=== PATIENT | male | born 1970 | race Caucasian/White ===

== ENCOUNTER 2017-06-11 10:56 | Emergency (ER) | payer OTHER ==
[2017-06-11] MEDS ORDERED: NITROGLYCERIN 2% OINTMENT 1 GM PACKET TP ONE (11:13)
--- NOTE | 2017-06-11 11:15 | ER Document Report ---
ED Medical Screen (RME) - General Chief Complaint: Chest Pain Stated Complaint: CHEST PAIN Time Seen by Provider: 06/11/17 11:12 Mode of Arrival: Wheelchair Information source: Patient TRAVEL OUTSIDE OF THE [place] IN LAST 30 DAYS: No - HPI Patient complains to provider of: cp Onset: Yesterday - pt. with prior [place] (CABG and stents) with SSCP yesterday with raidation down L arm. Has continued into today. Did take ASA and ntg times 3 this am - Related Data Allergies/Adverse Reactions: morphine [Morphine] Allergy (Severe, Verified 03/27/16 08:13) phycosis Past Medical History - Past Medical History Cardiac Medical History: Reports: Hx Coronary Artery Disease, Hx Heart Attack - 2011, Hx Hypercholesterolemia, Hx Hypertension Pulmonary Medical History: Reports: Hx Pneumonia Denies: Hx Tuberculosis Neurological Medical History: Reports: Hx Cerebrovascular Accident, Hx Migraine , Hx Seizures Endocrine Medical History: Reports: Hx Diabetes Mellitus Type 1, Hx Diabetes Mellitus Type 2 GI Medical History: Reports: Hx Gastroesophageal Reflux Disease Psychiatric Medical History: Reports: Hx Depression Past Surgical History: Reports: Hx Appendectomy, Hx Cardiac Surgery - CABGx3, Hx Coronary Artery Bypass Graft - Triple Bypass June 2011, Hx Orthopedic Surgery - Right knee, right shoulder.. Denies: Hx Pacemaker - Immunizations Hx Diphtheria, Pertussis, Tetanus Vaccination: Yes Physical Exam - Vital signs Vitals: Temp Pulse Resp BP Pulse Ox 99.0 F 102 H 20 132/97 H 99 06/11/17 11:06 06/11/17 11:06 06/11/17 11:06 06/11/17 11:06 06/11/17 11:06 Course - Vital Signs Vital signs: Temp Pulse Resp BP Pulse Ox 99.0 F 102 H 20 132/97 H 99 06/11/17 11:06 06/11/17 11:06 06/11/17 11:06 06/11/17 11:06 06/11/17 11:06
[2017-06-11 12:01] LABS: ABSOLUTE BASOPHILS # (AUTO) 0.1 10^3/uL (0.0-0.2); ABSOLUTE EOSINOPHILS # (AUTO) 0.4 10^3/uL (0.0-0.6); ABSOLUTE LYMPHOCYTES (AUTO) 3.3 10^3/uL (0.5-4.7); ABSOLUTE MONOCYTES (AUTO) 0.6 10^3/uL (0.1-1.4); BASOPHILS % (AUTO) 0.7 % (0-2); EOSINOPHILS % (AUTO) 3.5 % (0-6); HEMATOCRIT 45.2 % (37.9-51.0); LYMPHOCYTES % (AUTO) 31.9 % (13-45); MEAN CORPUSCULAR HEMOGLOBIN 32.3 pg (27.0-33.4); MEAN CORPUSCULAR HGB CONC 35.4 g/dL (32.0-36.0); MEAN CORPUSCULAR VOLUME 91 fl (80-97); MONOCYTES % (AUTO) 5.9 % (3-13); PLATELET COUNT 227 10^3/uL (150-450); RED BLOOD COUNT 4.97 10^6/uL (4.35-5.55); TOTAL CELLS COUNTED % (AUTO) 100 %; WHITE BLOOD COUNT 10.3 10^3/uL (4.0-10.5)
[2017-06-11 12:19] LABS: ALANINE AMINOTRANSFERASE 32 U/L (21-72); ALBUMIN 4.6 g/dL (3.5-5.0); ALKALINE PHOSPHATASE 92 U/L (38-126); ANION GAP 14 (5-19); ASPARTATE AMINO TRANSFERASE 25 U/L (17-59); BILIRUBIN,DIRECT 0.1 mg/dL (0.0-0.4); BILIRUBIN,TOTAL 0.5 mg/dL (0.2-1.3); BLOOD UREA NITROGEN 20 mg/dL (7-20); CARBON DIOXIDE 23 mmol/L (22-30); CHLORIDE 105 mmol/L (98-107); CREATINE KINASE 106 U/L (55-170); GLUCOSE 252 mg/dL (75-110); POTASSIUM 4.3 mmol/L (3.6-5.0); SODIUM 141.6 mmol/L (137-145)
--- NOTE | 2017-06-11 12:24 | ER Document Report ---
ED Cardiac - General Chief Complaint: Chest Pain Stated Complaint: CHEST PAIN Time Seen by Provider: 06/11/17 11:12 Mode of Arrival: Wheelchair Information source: Patient Notes: 46-year-old male who presents today with past medical history including CABG in 2011 with a stent placed in 2015 followed by the primary care physician Dr. Stock who presents today with the onset around 2 AM of some "shooting" intermittent pain to the left anterior chest. He denies any aggravating or relieving factors. He states some radiation to his left jaw with some intermittent "heaviness and numbness" to his left arm. He denies any weakness to his arm. He denies any diaphoresis, nausea, vomiting, calf pain, leg swelling, coughing, or shortness of breath. He denies any recent trips or travel. Patient has taken nitroglycerin and a 325 aspirin this morning. TRAVEL OUTSIDE OF THE [place] IN LAST 30 DAYS: No - HPI Patient complains to provider of: Chest pain Was the onset of pain: Gradual Quality of pain: Other - See above Chest pain radiation location: Left jaw Severity now: Mild Severity at worst: Moderate Pain level currently: Denies Associated symptoms: Other - See above Exacerbated by: Denies Relieved by: Nothing Similar symptoms previously: Yes Recently seen / treated by doctor: No - Related Data Allergies/Adverse Reactions: morphine [Morphine] Allergy (Severe, Verified 03/27/16 08:13) phycosis Past Medical History - General Information source: Patient - Social History Smoking Status: Current Every Day Smoker Cigarette use (# per day): No Chew tobacco use (# tins/day): No Smoking Education Provided: No Frequency of alcohol use: None Drug Abuse: None Family History: CAD Patient has suicidal ideation: No Patient has homicidal ideation: No - Past Medical History Cardiac Medical History: Reports: Hx Coronary Artery Disease, Hx Heart Attack - 2011, Hx Hypercholesterolemia, Hx Hypertension Pulmonary Medical History: Reports: Hx Pneumonia Denies: Hx Tuberculosis Neurological Medical History: Reports: Hx Cerebrovascular Accident, Hx Migraine , Hx Seizures Endocrine Medical History: Reports: Hx Diabetes Mellitus Type 1, Hx Diabetes Mellitus Type 2 Renal/ Medical History: Denies: Hx Peritoneal Dialysis GI Medical History: Reports: Hx Gastroesophageal Reflux Disease Psychiatric Medical History: Reports: Hx Depression Past Surgical History: Reports: Hx Appendectomy, Hx Cardiac Surgery - CABGx3, stents, Hx Coronary Artery Bypass Graft - Triple Bypass June 2011, Hx Orthopedic Surgery - Right knee, right shoulder.. Denies: Hx Pacemaker - Immunizations Hx Diphtheria, Pertussis, Tetanus Vaccination: Yes Hx Pneumococcal Vaccination: 04/18/09 Review of Systems - Review of Systems Constitutional: denies: Fever EENT: denies: Eye discharge, Nose discharge Cardiovascular: Chest pain. denies: Palpitations, Heart racing Respiratory: denies: Short of breath Gastrointestinal: denies: Vomiting Genitourinary: denies: Dysuria Musculoskeletal: denies: Leg swelling Skin: Other - no hives. denies: Rash Neurological/Psychological: Other - no slurred speech -: Yes All other systems reviewed and negative Physical Exam - Vital signs Vitals: Temp Pulse Resp BP Pulse Ox 99.0 F 102 H 20 132/97 H 99 06/11/17 11:06 06/11/17 11:06 06/11/17 11:06 06/11/17 11:06 06/11/17 11:06 Notes: Reviewed vital signs and nursing note as charted by RN. CONSTITUTIONAL: Alert and oriented and responds appropriately to questions. Well -appearing; well-nourished HEAD: Normocephalic; atraumatic EYES: PERRL ENT: Moist mucous membranes; pharynx without lesions noted NECK: Supple without meningismus; non-tender CARD: Regular rate and rhythm; no murmurs, no clicks, no rubs, no gallops; symmetric distal pulses RESP: Normal chest excursion without splinting or tachypnea; breath sounds clear and equal bilaterally ABD/GI: Normal bowel sounds; non-distended; soft, non-tender BACK: The back appears normal and is non-tender to palpation EXT: Normal ROM in all joints; non-tender to palpation; no edema SKIN: No acute lesions noted NEURO: Moves all extremities equally; Motor and sensory function intact PSYCH: The patient's mood and manner are appropriate. Grooming and personal hygiene are appropriate. Course - Re-evaluation Re-evalutation: 06/11/17 12:23 Given the history and physical examination, maximum pain 6 out of 10, no radiation to the back, intermittent in nature, no focal neurological deficits on my examination, heart rate currently 97, oxygen saturation 99, I do believe PE and aortic dissection to be unlikely. I will obtain a cardiac panel, x-ray of the chest, and EKG. EKG shows a heart of 113, sinus tachycardia, normal axis, poor R-wave progression, no obvious ST elevation or depression. 06/11/17 13:09 Initial troponin as recorded. Given the elevated risk for this patient, I had a discussion with the patient and his mother that I believe the patient requires admission for further evaluation. Patient refuses. He states he would like to go home. I have tried to answer all questions to change his mind. I was unsuccessful. He will allow me to obtain another troponin, 3 hours from the initial. He then agrees to sign out AMA if this is normal. Patient is asking for pain medications if he is going to stay here. He refuses a nitroglycerin drip and states he is allergic to morphine. He states he will take Dilaudid. I will provide a 1 mg dose of Dilaudid with a repeat 3 hour troponin. 06/11/17 14:21 Patient eloped AGAINST MEDICAL ADVICE after he received the Dilaudid. We were not able to provide paperwork or follow-up to the patient. - Vital Signs Vital signs: Temp Pulse Resp BP Pulse Ox 99.0 F 102 H 14 127/77 H 97 06/11/17 11:06 06/11/17 11:06 06/11/17 13:17 06/11/17 13:17 06/11/17 13:17 - Laboratory Result Diagrams: 06/11/17 11:25 06/11/17 11:25 Laboratory results interpreted by me: 06/11/17 11:25 Glucose 252 H Discharge - Discharge Clinical Impression: Chest pain Qualifiers: Chest pain type: unspecified Qualified Code(s): R07.9 - Chest pain, unspecified Condition: Fair Disposition: AGAINST MEDICAL ADVICE
[2017-06-11] MEDS ORDERED: ACETAMINOPHEN 325 MG TABLET PO ONE (12:27)
[2017-06-11 12:31] LABS: CREATINE KINASE MB 0.29 ng/mL (<4.55)
[2017-06-11 12:33] LABS: TROPONIN I < 0.012 ng/mL
--- NOTE | 2017-06-11 13:04 | RADIOLOGY REPORT (SQ) ---
EXAM DESCRIPTION: CHEST PA/LAT COMPLETED DATE/TIME: 06/11/2017 12:36 pm REASON FOR STUDY: cp COMPARISON: 03/27/2016 EXAM PARAMETERS: NUMBER OF VIEWS: two views TECHNIQUE: Digital Frontal and Lateral radiographic views of the chest acquired. RADIATION DOSE: NA LIMITATIONS: none FINDINGS: LUNGS AND PLEURA: No opacities, masses or pneumothorax. No pleural effusion. MEDIASTINUM AND HILAR STRUCTURES: No masses or contour abnormalities. HEART AND VASCULAR STRUCTURES: Heart normal size. No evidence for failure. BONES: No acute findings. HARDWARE: Stable appearance of the sternotomy wires. OTHER: No other significant finding. IMPRESSION: NO SIGNIFICANT RADIOGRAPHIC FINDING IN THE CHEST. TECHNICAL DOCUMENTATION: JOB ID: [id number] [employer]- All Rights Reserved Reading location - IP/workstation name: [email or web address]
[2017-06-11] MEDS ORDERED: HYDROMORPHONE HCL INJ/PF 2 MG/ML AMPULE IV ONE (13:11)
[2017-06-11 14:02] VITALS: BP 127/77
--- NOTE | 2017-06-11 17:20 | EKG REPORT ---
SEVERITY:- OTHERWISE NORMAL ECG - SINUS TACHYCARDIA LOW VOLTAGE IN FRONTAL LEADS : Confirmed by: Efraín Armando MD 11-Jun-2017 17:19:20
== END 2017-06-11 14:02 | disposition left against medical advice (07) ==
LOC: ER 10:56
DX: R07.9 Chest pain, unspecified (principal); R20.0 Anesthesia of skin; R00.0 Tachycardia, unspecified; E11.9 Type 2 diabetes mellitus without complications; I10 Essential (primary) hypertension; I25.10 Atherosclerotic heart disease of native coronary artery without angina pectoris; I25.2 Old myocardial infarction; Z95.1 Presence of aortocoronary bypass graft; Z95.5 Presence of coronary angioplasty implant and graft; Z88.5 Allergy status to narcotic agent; Z87.01 Personal history of pneumonia (recurrent); Z53.20 Procedure and treatment not carried out because of patient's decision for unspecified reasons
CPT/HCPCS: 93005; 99285; 96374; 36415; 82553; 82550; 85025; 80053; 84484; 71046; 93010; J1170

== ENCOUNTER 2017-11-15 18:24 | Emergency (ER) | payer OTHER ==
[2017-11-15] MEDS ORDERED: ASPIRIN 81 MG TABLET, CHEWABLE PO ONE (19:06)
[2017-11-15] MEDS ORDERED: HYDROMORPHONE HCL INJ/PF 2 MG/ML AMPULE IV ONE ×3 (19:06→23:02)
[2017-11-15] MEDS ORDERED: ONDANSETRON HCL INJ/PF 4 MG/2 ML SDV IV ONE (19:06)
[2017-11-15] MEDS ORDERED: METOPROLOL TARTRATE PF/INJ 5 MG/5 ML SDV IV ONE (19:07)
[2017-11-15] MEDS ORDERED: NITROGLYCERIN 2% OINTMENT 1 GM PACKET TP ONE (19:07)
--- NOTE | 2017-11-15 19:09 | ER Document Report ---
ED Medical Screen (RME) - General Chief Complaint: Chest Pain Stated Complaint: CHEST PAIN Time Seen by Provider: 11/15/17 19:06 Mode of Arrival: Ambulatory Information source: Patient Notes: This is a 46-year-old man with a history of coronary artery disease (CABG 3, followed by stent) who presents to the emergency room with left-sided chest pain sharp in nature which is radiating down the left arm. He says this is consistent with previous anginal equivalent. Patient states that the pain started at 3 PM. He does report palpitations. Primary CARE physician: Arie Track Worker: OLGA TRAVEL OUTSIDE OF THE [place] IN LAST 30 DAYS: No - Related Data Allergies/Adverse Reactions: morphine [Morphine] Allergy (Severe, Verified 03/27/16 08:13) phycosis Past Medical History - Social History Chew tobacco use (# tins/day): No Frequency of alcohol use: Occasional Drug Abuse: None - Past Medical History Cardiac Medical History: Reports: Hx Coronary Artery Disease, Hx Heart Attack - 2011, Hx Hypercholesterolemia, Hx Hypertension Pulmonary Medical History: Reports: Hx Pneumonia Denies: Hx Tuberculosis Neurological Medical History: Reports: Hx Cerebrovascular Accident, Hx Migraine , Hx Seizures Endocrine Medical History: Reports: Hx Diabetes Mellitus Type 1, Hx Diabetes Mellitus Type 2 Renal/ Medical History: Denies: Hx Peritoneal Dialysis GI Medical History: Reports: Hx Gastroesophageal Reflux Disease Psychiatric Medical History: Reports: Hx Depression Past Surgical History: Reports: Hx Appendectomy, Hx Cardiac Catheterization - stents 2014, Hx Cardiac Surgery - CABGx3, stents, Hx Coronary Artery Bypass Graft - Triple Bypass June 2011, Hx Open Heart Surgery - CABG 2011, Hx Orthopedic Surgery - Right knee, right shoulder.. Denies: Hx Pacemaker - Immunizations Hx Diphtheria, Pertussis, Tetanus Vaccination: Yes Physical Exam - Vital signs Vitals: Temp Pulse Resp BP Pulse Ox 98.7 F 121 H 20 131/98 H 97 11/15/17 18:42 11/15/17 18:42 11/15/17 18:42 11/15/17 18:42 11/15/17 18:42 Course - Vital Signs Vital signs: Temp Pulse Resp BP Pulse Ox 98.7 F 121 H 20 131/98 H 97 11/15/17 18:42 11/15/17 18:42 11/15/17 18:42 11/15/17 18:42 11/15/17 18:42
--- NOTE | 2017-11-15 19:28 | ER Document Report ---
ED Cardiac - General Chief Complaint: Chest Pain Stated Complaint: CHEST PAIN Time Seen by Provider: 11/15/17 19:06 Mode of Arrival: Ambulatory Notes: Patient is a 46-year-old male comes emergency department for chief complaint of chest pain, pain is sharp, radiates along the left side of his chest toward his arm, started at 3 PM while he was watching TV, he took 3 sublingual nitroglycerin, he states pain is intermittently severe still, he took 2 additional sublingual nitroglycerin and when pain continued he came to the emergency department. He describes the pain as sharp, like being hit in the chest when a hammer and then gets tingling sensation in his left arm. Pain is very frequent. He denies vomiting, fever or chills, cough, dizziness, trauma. He has a complicated medical history including CABG 3, most recently had a stent in 2014 at [facility], he also has a history of hyperlipidemia, hypertension, type 2 diabetes, seizure, and he continues to smoke. He denies recreational drugs. He is on pain management for chronic pain secondary to "abnormally healed sternum which was fractured from coughing". His mother is at bedside. TRAVEL OUTSIDE OF THE [place] IN LAST 30 DAYS: No - Related Data Allergies/Adverse Reactions: morphine [Morphine] Allergy (Severe, Verified 03/27/16 08:13) phycosis Past Medical History - General Information source: Patient - Social History Smoking Status: Current Every Day Smoker Chew tobacco use (# tins/day): No Smoking Education Provided: Yes - <3 min Frequency of alcohol use: Occasional Drug Abuse: None Lives with: Family Family History: CAD Patient has suicidal ideation: No Patient has homicidal ideation: No - Past Medical History Cardiac Medical History: Reports: Hx Coronary Artery Disease, Hx Heart Attack - 2011, Hx Hypercholesterolemia, Hx Hypertension Pulmonary Medical History: Reports: Hx Pneumonia Denies: Hx Tuberculosis Neurological Medical History: Reports: Hx Cerebrovascular Accident, Hx Migraine , Hx Seizures Endocrine Medical History: Reports: Hx Diabetes Mellitus Type 2 Renal/ Medical History: Denies: Hx Peritoneal Dialysis GI Medical History: Reports: Hx Gastroesophageal Reflux Disease Psychiatric Medical History: Reports: Hx Depression Past Surgical History: Reports: Hx Appendectomy, Hx Cardiac Catheterization - stents 2014, Hx Cardiac Surgery - CABGx3, stents, Hx Coronary Artery Bypass Graft - Triple Bypass June 2011, Hx Open Heart Surgery - CABG 2011, Hx Orthopedic Surgery - Right knee, right shoulder.. Denies: Hx Pacemaker - Immunizations Hx Diphtheria, Pertussis, Tetanus Vaccination: Yes Hx Pneumococcal Vaccination: 04/18/09 Review of Systems - Review of Systems Constitutional: No symptoms reported EENT: No symptoms reported Cardiovascular: See HPI Respiratory: No symptoms reported Gastrointestinal: No symptoms reported Genitourinary: No symptoms reported Male Genitourinary: No symptoms reported Musculoskeletal: No symptoms reported Skin: No symptoms reported Hematologic/Lymphatic: No symptoms reported Neurological/Psychological: No symptoms reported Physical Exam - Vital signs Vitals: Temp Pulse Resp BP Pulse Ox 98.7 F 121 H 20 131/98 H 97 11/15/17 18:42 11/15/17 18:42 11/15/17 18:42 11/15/17 18:42 11/15/17 18:42 - Notes Notes: GENERAL: Alert, interacts well. On initial evaluation patient is calm and in no distress HEAD: Normocephalic, atraumatic. EYES: Pupils equal, round, and reactive to light. Extraocular movements intact. ENT: Oral mucosa moist, tongue midline. NECK: Full range of motion. Supple. Trachea midline. LUNGS: Clear to auscultation bilaterally, no wheezes, rales, or rhonchi. No respiratory distress. No tenderness to palpation of the chest wall. HEART: Tachycardia, normal rhythm, no murmur ABDOMEN: Soft, non-tender. Non-distended. Bowel sounds present in all 4 quadrants. EXTREMITIES: Moves all 4 extremities spontaneously. No edema, normal radial and dorsalis pedis pulses bilaterally. No cyanosis. BACK: no cervical, thoracic, lumbar midline tenderness. No saddle anesthesia, normal distal neurovascular exam. NEUROLOGICAL: Alert and oriented x3. Normal speech. [cranial nerves II through XII grossly intact]. PSYCH: Normal affect, normal mood. SKIN: Flushed, appears to have recently had diaphoresis Course - Re-evaluation Re-evalutation: On my initial evaluation patient obviously uncomfortable, diaphoretic, has mild tachypnea, appears to be in pain. He reports that the symptoms of sharp pain along left side of his chest toward his arm are the same as last time he had an VT. Giving additional nitroglycerin, Dilaudid with morphine allergy, Lopressor 5 mg, aspirin. Will closely reevaluate. EKG showing sinus tachycardia at a rate of 108, no T-wave inversions or ST segment changes in consecutive leads, normal axis, QTC of 440, WV of 176. 11/15/17 21:10 Initial troponin hemolyzed, repeat troponin is negative. Patient had an episode of repeat pain and he was remedicated. Because of repeated chest pain at rest and his concerning medical history I discussed with patient and recommended we start a nitroglycerin drip and transfer him to tertiary care center for unstable angina. He denies shortness of breath, he does not have hypoxia, his blood pressure is not elevated, pain comes intermittently, normal distal pulses, as result I have lower suspicion of pulmonary embolism or aortic dissection. His chest x-ray does not show pneumothorax or concerning abnormality. Patient declined. Patient states he does not want to be transferred, he does not want to get admitted here, he states his pain is actually improving now and he wants to wait without additional intervention, he refuses nitroglycerin drip , he does agree to cycle troponin. Discussed with Dr. Cooley. Patient is alert , oriented, moderate bedside and agreement with whatever he wants, patient does appear knowledgeable and able to make this decision. He is coherent with clear thought process. Troponin cycled and negative. Stressed again that I recommend nitroglycerin drip and transfer to tertiary care. I discussed that he could at least be having unstable angina which could lead to fatal heart attack, he might be having a heart attack, or other acute etiology could be existing which needs to be further evaluated. He states understanding with this, he states that he understands that he could go home and he could , he states that he is accepting the risk and he will return if he worsens but at this time he is requesting to sign out AGAINST MEDICAL ADVICE. - Vital Signs Vital signs: Temp Pulse Resp BP Pulse Ox 98.7 F 121 H 18 122/94 H 97 11/15/17 18:42 11/15/17 18:42 11/15/17 23:01 11/15/17 23:00 11/15/17 23:01 - Laboratory Result Diagrams: 11/15/17 19:19 11/15/17 20:06 Laboratory results interpreted by me: 11/15/17 11/15/17 19:19 20:06 WBC 13.3 H RBC 5.73 H Hgb 18.3 H Hct 53.1 H Glucose 163 H Discharge - Discharge Clinical Impression: Chest pain Qualifiers: Chest pain type: unspecified Qualified Code(s): R07.9 - Chest pain, unspecified Condition: Stable Disposition: AGAINST MEDICAL ADVICE Additional Instructions: Your signing out AGAINST MEDICAL ADVICE. Your workup to this point does not show concerning findings, however your symptoms are very concerning that they could be related to the heart, you may have a heart attack or even . Recommendation is to return here or elsewhere to seek additional medical evaluation and treatment. Referrals: BETSY OVIEDO PA-C [Primary Care Provider] - Follow up as needed
[2017-11-15 19:35] LABS: ABSOLUTE BASOPHILS # (AUTO) 0.1 10^3/uL (0.0-0.2); ABSOLUTE EOSINOPHILS # (AUTO) 0.4 10^3/uL (0.0-0.6); ABSOLUTE LYMPHOCYTES (AUTO) 4.1 10^3/uL (0.5-4.7); ABSOLUTE MONOCYTES (AUTO) 0.8 10^3/uL (0.1-1.4); ABSOLUTE NEUT (AUTO) 7.8 10^3/uL (1.7-8.2); BASOPHILS % (AUTO) 0.9 % (0-2); EOSINOPHILS % (AUTO) 3.1 % (0-6); HEMATOCRIT 53.1 % (37.9-51.0); HEMOGLOBIN 18.3 g/dL (13.5-17.0); LYMPHOCYTES % (AUTO) 31.2 % (13-45); MEAN CORPUSCULAR HEMOGLOBIN 31.9 pg (27.0-33.4); MEAN CORPUSCULAR HGB CONC 34.4 g/dL (32.0-36.0); MEAN CORPUSCULAR VOLUME 93 fl (80-97); MONOCYTES % (AUTO) 5.9 % (3-13); PLATELET COUNT 236 10^3/uL (150-450); RED BLOOD COUNT 5.73 10^6/uL (4.35-5.55); RED CELL DISTRIBUTION WIDTH 13.8 % (11.5-14.0); SEGMENTED NEUTROPHILS % (AUTO) 58.9 % (42-78); TOTAL CELLS COUNTED % (AUTO) 100 %; WHITE BLOOD COUNT 13.3 10^3/uL (4.0-10.5)
--- NOTE | 2017-11-15 19:43 | RADIOLOGY REPORT (SQ) ---
EXAM DESCRIPTION: CHEST SINGLE VIEW COMPLETED DATE/TIME: 11/15/2017 7:32 pm REASON FOR STUDY: cp COMPARISON: 06/11/2017 EXAM PARAMETERS: NUMBER OF VIEWS: One view. TECHNIQUE: Single frontal radiographic view of the chest acquired. RADIATION DOSE: NA LIMITATIONS: None. FINDINGS: LUNGS AND PLEURA: No opacities, masses or pneumothorax. No pleural effusion. MEDIASTINUM AND HILAR STRUCTURES: No masses. Contour normal. HEART AND VASCULAR STRUCTURES: Heart normal in size. Normal vasculature. BONES: No acute findings. HARDWARE: Sternotomy wires. OTHER: No other significant finding. IMPRESSION: NO ACUTE RADIOGRAPHIC FINDING IN THE CHEST. TECHNICAL DOCUMENTATION: JOB ID: [id number] [employer]- All Rights Reserved Reading location - IP/workstation name: [email or web address]
[2017-11-15 19:47] LABS: INTERNATIONAL RATION (INR) 0.86; PROTHROMBIN TIME 12.1 SEC (11.4-15.4)
[2017-11-15] MEDS ORDERED: NORMAL SALINE 1000 ML 500 ML IV ONE (20:21)
[2017-11-15 20:37] LABS: ALANINE AMINOTRANSFERASE 42 U/L (21-72); ALBUMIN 4.3 g/dL (3.5-5.0); ALKALINE PHOSPHATASE 105 U/L (38-126); ANION GAP 14 (5-19); ASPARTATE AMINO TRANSFERASE 31 U/L (17-59); BILIRUBIN,DIRECT 0.3 mg/dL (0.0-0.4); BILIRUBIN,TOTAL 0.4 mg/dL (0.2-1.3); BLOOD UREA NITROGEN 15 mg/dL (7-20); CALCIUM 9.9 mg/dL (8.4-10.2); CARBON DIOXIDE 23 mmol/L (22-30); CHLORIDE 106 mmol/L (98-107); CREATINE KINASE 59 U/L (55-170); GLUCOSE 163 mg/dL (75-110); POTASSIUM 4.4 mmol/L (3.6-5.0); SODIUM 142.8 mmol/L (137-145); TOTAL PROTEIN 7.3 g/dL (6.3-8.2)
[2017-11-15 20:55] LABS: CREATINE KINASE MB < 0.22 ng/mL (<4.55); TROPONIN I < 0.012 ng/mL
[2017-11-15] MEDS ORDERED: FENTANYL CITRATE INJ/PF 100 MCG/2 ML AMPUL IV ONE (21:30)
--- NOTE | 2017-11-15 22:07 | EKG REPORT ---
SEVERITY:- OTHERWISE NORMAL ECG - SINUS TACHYCARDIA LOW VOLTAGE IN FRONTAL LEADS : Confirmed by: Favian Mares 15-Nov-2017 22:07:08
[2017-11-15 23:35] VITALS: BP 122/94
== END 2017-11-16 00:01 | disposition left against medical advice (07) ==
LOC: ER 18:24
DX: R07.9 Chest pain, unspecified (principal); F17.200 Nicotine dependence, unspecified, uncomplicated; I25.10 Atherosclerotic heart disease of native coronary artery without angina pectoris; E78.00 Pure hypercholesterolemia, unspecified; I10 Essential (primary) hypertension; E11.9 Type 2 diabetes mellitus without complications; Z88.6 Allergy status to analgesic agent; I25.2 Old myocardial infarction; Z86.73 Personal history of transient ischemic attack (TIA), and cerebral infarction without residual deficits; Z95.1 Presence of aortocoronary bypass graft
CPT/HCPCS: 93005; 96376; 99285; 96374; 96375; 36415; 82553; 82550; 85025; 85610; 80053; 84484; 71045; 93010; J3010; J3490; J1170; J2405

== ENCOUNTER 2017-11-16 14:45 | Emergency (ER) | payer OTHER ==
[2017-11-16] MEDS ORDERED: ASPIRIN 81 MG TABLET, CHEWABLE PO ONE (15:03)
[2017-11-16] MEDS ORDERED: FENTANYL CITRATE INJ/PF 100 MCG/2 ML AMPUL IV ONE (15:04)
--- NOTE | 2017-11-16 15:08 | ER Document Report ---
ED Medical Screen (RME) - General Chief Complaint: Chest Pain Stated Complaint: CHEST PAIN Time Seen by Provider: 11/16/17 15:03 Mode of Arrival: Ambulatory Information source: Patient TRAVEL OUTSIDE OF THE [place] IN LAST 30 DAYS: No - HPI Patient complains to provider of: Crushing chest pain beginning yesterday early in the day Onset: Yesterday Onset/Duration: Persistent Pain Level: 4 Associated Symptoms: Shortness of breath, Weakness Exacerbated by: Movement - Related Data Allergies/Adverse Reactions: morphine [Morphine] Allergy (Severe, Verified 11/16/17 14:48) phycosis Past Medical History - Past Medical History Cardiac Medical History: Reports: Hx Coronary Artery Disease, Hx Heart Attack - 2011, Hx Hypercholesterolemia, Hx Hypertension Pulmonary Medical History: Reports: Hx Pneumonia Denies: Hx Tuberculosis Neurological Medical History: Reports: Hx Cerebrovascular Accident, Hx Migraine , Hx Seizures Endocrine Medical History: Reports: Hx Diabetes Mellitus Type 1, Hx Diabetes Mellitus Type 2 Renal/ Medical History: Denies: Hx Peritoneal Dialysis GI Medical History: Reports: Hx Gastroesophageal Reflux Disease Psychiatric Medical History: Reports: Hx Depression Past Surgical History: Reports: Hx Appendectomy, Hx Cardiac Catheterization - stents 2014, Hx Cardiac Surgery - CABGx3, stents, Hx Coronary Artery Bypass Graft - Triple Bypass June 2011, Hx Open Heart Surgery - CABG 2011, Hx Orthopedic Surgery - Right knee, right shoulder.. Denies: Hx Pacemaker - Immunizations Hx Diphtheria, Pertussis, Tetanus Vaccination: Yes Physical Exam - Vital signs Vitals: Temp Pulse Resp BP Pulse Ox 98.7 F 88 18 120/92 H 99 11/16/17 14:55 11/16/17 14:55 11/16/17 14:55 11/16/17 14:55 11/16/17 14:55 - Notes Notes: Patient currently clutching chest appears somewhat uncomfortable. Modestly diaphoretic Course - Re-evaluation Re-evalutation: 11/16/17 15:06 46-year-old male with significant cardiac risk factors evaluated yesterday left AMA prior to being transported for further evaluation of his ongoing chest pain. Given that the patient was previously to be admitted for his chest pain has had persistent chest pain since leaving the hospital will plan for further evaluation cardiac monitoring enzyme cycling administration of fentanyl for pain control and likely admission to the hospital. - Vital Signs Vital signs: Temp Pulse Resp BP Pulse Ox 98.7 F 88 18 120/92 H 99 11/16/17 14:55 11/16/17 14:55 11/16/17 14:55 11/16/17 14:55 11/16/17 14:55 Doctor's Discharge - Discharge Referrals: BETSY OVIEDO PA-C [Primary Care Provider] - Follow up as needed
[2017-11-16 15:46] LABS: ABSOLUTE BASOPHILS # (AUTO) 0.1 10^3/uL (0.0-0.2); ABSOLUTE EOSINOPHILS # (AUTO) 0.3 10^3/uL (0.0-0.6); ABSOLUTE LYMPHOCYTES (AUTO) 4.2 10^3/uL (0.5-4.7); ABSOLUTE NEUT (AUTO) 8.7 10^3/uL (1.7-8.2); BASOPHILS % (AUTO) 0.8 % (0-2); EOSINOPHILS % (AUTO) 2.3 % (0-6); HEMATOCRIT 50.4 % (37.9-51.0); HEMOGLOBIN 17.5 g/dL (13.5-17.0); MEAN CORPUSCULAR HEMOGLOBIN 32.1 pg (27.0-33.4); MEAN CORPUSCULAR HGB CONC 34.7 g/dL (32.0-36.0); MEAN CORPUSCULAR VOLUME 93 fl (80-97); MONOCYTES % (AUTO) 6.8 % (3-13); PLATELET COUNT 234 10^3/uL (150-450); RED BLOOD COUNT 5.44 10^6/uL (4.35-5.55); RED CELL DISTRIBUTION WIDTH 13.9 % (11.5-14.0); SEGMENTED NEUTROPHILS % (AUTO) 61.1 % (42-78); TOTAL CELLS COUNTED % (AUTO) 100 %; WHITE BLOOD COUNT 14.3 10^3/uL (4.0-10.5)
--- NOTE | 2017-11-16 15:59 | RADIOLOGY REPORT (SQ) ---
EXAM DESCRIPTION: CHEST SINGLE VIEW COMPLETED DATE/TIME: 11/16/2017 3:42 pm REASON FOR STUDY: chest pain COMPARISON: 06/11/2017. EXAM PARAMETERS: NUMBER OF VIEWS: One view. TECHNIQUE: Single frontal radiographic view of the chest acquired. RADIATION DOSE: NA LIMITATIONS: None. FINDINGS: LUNGS AND PLEURA: No opacities, masses or pneumothorax. No pleural effusion. MEDIASTINUM AND HILAR STRUCTURES: No masses. Contour normal. HEART AND VASCULAR STRUCTURES: Heart normal in size. Normal vasculature. BONES: No acute findings. Previous resection of the distal right clavicle. HARDWARE: Sternotomy wires. OTHER: No other significant finding. IMPRESSION: NO ACUTE RADIOGRAPHIC FINDING IN THE CHEST. TECHNICAL DOCUMENTATION: JOB ID: [id number] [employer] All Rights Reserved Reading location - IP/workstation name: [email or web address]
[2017-11-16 16:04] LABS: ALANINE AMINOTRANSFERASE 47 U/L (21-72); ALBUMIN 4.4 g/dL (3.5-5.0); ALKALINE PHOSPHATASE 91 U/L (38-126); ANION GAP 12 (5-19); ASPARTATE AMINO TRANSFERASE 40 U/L (17-59); BILIRUBIN,DIRECT 0.2 mg/dL (0.0-0.4); BILIRUBIN,TOTAL 0.6 mg/dL (0.2-1.3); BLOOD UREA NITROGEN 19 mg/dL (7-20); CALCIUM 9.7 mg/dL (8.4-10.2); CARBON DIOXIDE 26 mmol/L (22-30); CHLORIDE 106 mmol/L (98-107); GLUCOSE 117 mg/dL (75-110); POTASSIUM 4.1 mmol/L (3.6-5.0); SODIUM 144.4 mmol/L (137-145); TOTAL PROTEIN 7.5 g/dL (6.3-8.2)
[2017-11-16] MEDS: NITROGLYCERIN 2% OINTMENT 1 GM PACKET TP ONE ×2 (17:53→17:57)
[2017-11-16] MEDS ORDERED: HYDROMORPHONE HCL INJ/PF 2 MG/ML AMPULE IV ONE ×2 (18:26→20:56)
[2017-11-16] MEDS ORDERED: NITROGLYCERIN 2% OINTMENT 1 GM PACKET TP ONE (19:04)
--- NOTE | 2017-11-16 20:02 | RADIOLOGY REPORT (SQ) ---
EXAM DESCRIPTION: CTA CHEST COMPLETED DATE/TIME: 11/16/2017 7:47 pm REASON FOR STUDY: CHEST PAIN, TACHYCARDIA, R/O P.E. COMPARISON: Chest x-ray 11/16/2017 TECHNIQUE: CT scan of the chest performed using helical scanning technique with dynamic intravenous contrast injection. Images reviewed with lung, soft tissue and bone windows. Reconstructed coronal and sagittal MPR images reviewed. Additional 3 dimensional post-processing performed to develop Maximal Intensity Projection images (UT P). All images stored on PACS. All CT scanners at this facility use dose modulation, iterative reconstruction, and/or weight based d osing when appropriate to reduce radiation dose to as low as reasonably achievable (ALARA). [facility]: Dose Right [facility]: CareDose [facility]: Dose Right [facility]: Teradose 4D [facility]: mphoria CONTRAST TYPE AND DOSE: contrast/concentration: Isovue 370.00 mg/ml; Total Contrast Delivered: 80.0 ml; Total Saline Delivered: 70.0 ml BUN 19 creatinine 1.13 RENAL FUNCTION: BUN 19 creatinine 1.13 RADIATION DOSE: CT Rad equipment meets quality standard of care and radiation dose reduction techniq ues were employed. CTDIvol: 13.2 - 22.2 mGy. DLP: 880 mGy-cm. . LIMITATIONS: None. FINDINGS: LUNGS AND PLEURA: No masses, infiltrates, or pneumothorax. No pleural effusions or pleura l calcifications. AORTA AND GREAT VESSELS: No aneurysm. Contrast bolus not optimized for the aorta. HEART: No pericardial effusion. No significant coronary artery calcifications. PULMONARY ARTERIES: No emboli visualized in the main pulmonary arteries or the segmental branches. HILAR AND MEDIASTINAL STRUCTURES: No identified masses or abnormal nodes. HARDWARE: None in the chest. UPPER ABDOMEN: No significant findings. Limited exam. THYROID AND OTHER SOFT TISSUES: No masses. No adenopathy. BONES: No acute or significant finding. 3D MIPS: Confirm above findings. OTHER: No other significant finding. IMPRESSION: NORMAL CTA OF THE CHEST. NO PULMONARY EMBOLI. COMMENT: Quality ID # [id number]: Final reports with documentation of one or more dose reduction techniques (e.g., Automated exposure control, adjustment of the mA and/or kV according to patient size, use of iterative reconstruction technique) TECHNICAL DOCUMENTATION: JOB ID: [id number] [email or web address]- All Rights Reserved Reading location - IP/workstation name: [email or web address]
--- NOTE | 2017-11-16 20:40 | ER Document Report ---
ED Cardiac - General Chief Complaint: Chest Pain Stated Complaint: CHEST PAIN Time Seen by Provider: 11/16/17 15:03 Mode of Arrival: Ambulatory Information source: Patient TRAVEL OUTSIDE OF THE [place] IN LAST 30 DAYS: No - HPI Patient complains to provider of: Chest pain Use of: denies: Alcohol, Amphetamines, Bath salts, Caffeine, Cocaine, Decongestants Was the onset of pain: Gradual Is the pain a: New problem Chest pain location: Other - L. PARASTERNAL Quality of pain: Moderate, Pressure, Stabbing Chest pain radiation location: Left jaw, Left shoulder Severity now: Mild Severity at worst: Moderate Chest pain precipitating factors: At Rest Cardiac risk factors: Hypertension, Dyslipidemia, Hx [place] Positive cardiac history: Yes Associated symptoms: Diaphoresis, Nausea/vomiting, Shortness of breath Exacerbated by: Activity. denies: Sitting, Standing, Torso movement, Lying flat Relieved by: Rest, NTG - MINIMAL. denies: Leaning forward Similar symptoms previously: Yes - W/ PREVIOUS [place] Recently seen / treated by doctor: Yes - ELODIA Cunningham, LAST PM, DECLINED TRANSFER & LEFT AMA. - Related Data Allergies/Adverse Reactions: morphine [Morphine] Allergy (Severe, Verified 11/16/17 14:48) phycosis Past Medical History - General Information source: Patient - Social History Smoking Status: Never Smoker Cigarette use (# per day): No Chew tobacco use (# tins/day): No Frequency of alcohol use: None Drug Abuse: None Lives with: Parents Family History: CAD Patient has suicidal ideation: No Patient has homicidal ideation: No - Past Medical History Cardiac Medical History: Reports: Hx Coronary Artery Disease, Hx Heart Attack - 2011, Hx Hypercholesterolemia, Hx Hypertension Pulmonary Medical History: Reports: Hx Pneumonia Denies: Hx Tuberculosis Neurological Medical History: Reports: Hx Cerebrovascular Accident, Hx Migraine , Hx Seizures Endocrine Medical History: Reports: Hx Diabetes Mellitus Type 1, Hx Diabetes Mellitus Type 2 Renal/ Medical History: Denies: Hx Peritoneal Dialysis Malignancy Medical History: Reports None GI Medical History: Reports: Hx Gastroesophageal Reflux Disease Musculoskeletal Medical History: Reports Other - ABNORMAL STERNOTOMY HEALING, CHRONIC PAIN Psychiatric Medical History: Reports: Hx Depression Past Surgical History: Reports: Hx Appendectomy, Hx Cardiac Catheterization - stents 2014, Hx Cardiac Surgery - CABGx3, stents, Hx Coronary Artery Bypass Graft - Triple Bypass June 2011, Hx Open Heart Surgery - CABG 2011, Hx Orthopedic Surgery - Right knee, right shoulder.. Denies: Hx Pacemaker - Immunizations Hx Diphtheria, Pertussis, Tetanus Vaccination: Yes Hx Pneumococcal Vaccination: 04/18/09 Review of Systems - Review of Systems Constitutional: Weakness EENT: No symptoms reported Cardiovascular: See HPI Respiratory: See HPI Gastrointestinal: See HPI Genitourinary: No symptoms reported Musculoskeletal: See HPI Skin: No symptoms reported Neurological/Psychological: No symptoms reported Physical Exam - Vital signs Vitals: Temp Pulse Resp BP Pulse Ox 98.7 F 88 18 120/92 H 99 11/16/17 14:55 11/16/17 14:55 11/16/17 14:55 11/16/17 14:55 11/16/17 14:55 Interpretation: Hypertensive - General General appearance: Alert, Anxious In distress: None - HEENT Head: Normocephalic Eyes: Normal Conjunctiva: Normal Ears: Normal Nasal: Normal Mouth/Lips: Normal Mucous membranes: Normal - Respiratory Respiratory status: No respiratory distress Chest status: Tender - MILD, UPPER STERNUM Breath sounds: Normal - Cardiovascular Rhythm: Regular Heart sounds: Normal auscultation Murmur: No - Abdominal Inspection: Normal Distension: No distension Bowel sounds: Normal - Back Back: Normal - Extremities General upper extremity: Normal inspection General lower extremity: Normal inspection. No: Tender, Edema - Neurological Neuro grossly intact: Yes Cognition: Normal Orientation: AAOx4 - Psychological Associated symptoms: Normal affect, Normal mood - Skin Skin Temperature: Warm Skin Moisture: Dry Skin Color: Normal Skin Turgor: Elastic Course - Vital Signs Vital signs: Temp Pulse Resp BP Pulse Ox 98.7 F 88 13 116/73 96 11/16/17 14:55 11/16/17 14:55 11/16/17 20:31 11/16/17 20:31 11/16/17 20:31 - Laboratory Result Diagrams: 11/16/17 15:33 11/16/17 15:33 Laboratory results interpreted by me: 11/16/17 11/16/17 15:33 15:33 WBC 14.3 H Hgb 17.5 H Absolute Neutrophils 8.7 H Glucose 117 H - EKG Interpretation by Wi EKG shows normal: Sinus rhythm, [place], Intervals, QRS Complexes, ST-T Waves Rate: Normal Rhythm: NSR Voltage: Decreased voltage - Consults DR. DUVAL Time consulted: 18:50 Reason for consultation: 11/16/17 20:49 ADVISES: CONSIDER CTA TO R/O P.E., CONSIDER ADMISSION TO [facility] IF STRESS TESTING AVAILABLE TOMORROW. WILL ACCEPT TRANSFER IF HOSPITALIST FEELS ADMISSION TO [facility] NOT APPROPRIATE. DR. ALATORRE Time consulted: 19:55 Reason for consultation: 11/16/17 20:54 SPOKE WITH PATIENT, REVIEWED DATA, CONCLUDED THAT PATIENT NEEDS HIGHER LEVEL OF CARE. Consulted provider: will come to ER Discharge - Discharge Clinical Impression: Chest pain Condition: Good Disposition: Counts Include [facility] B[facility] At [facility]
--- NOTE | 2017-11-16 21:23 | EKG REPORT ---
SEVERITY:- OTHERWISE NORMAL ECG - SINUS RHYTHM LOW VOLTAGE IN FRONTAL LEADS : Confirmed by: Favian Mares 16-Nov-2017 21:22:56
[2017-11-16 22:21] VITALS: BP 117/74
== END 2017-11-16 22:28 | disposition short-term general hospital (02) ==
LOC: ER 14:45
DX: R07.89 Other chest pain (principal); R61 Generalized hyperhidrosis; R11.2 Nausea with vomiting, unspecified; R06.02 Shortness of breath; R53.1 Weakness; I25.10 Atherosclerotic heart disease of native coronary artery without angina pectoris; I10 Essential (primary) hypertension; I25.2 Old myocardial infarction; E11.9 Type 2 diabetes mellitus without complications; Z88.5 Allergy status to narcotic agent; Z95.5 Presence of coronary angioplasty implant and graft; Z95.1 Presence of aortocoronary bypass graft; Z82.49 Family history of ischemic heart disease and other diseases of the circulatory system
CPT/HCPCS: 93005; 96376; 99285; 96374; 96375; 36415; 85025; 80053; 84484; 71045; 71275; 93010; J3010; J1170

== ENCOUNTER 2018-03-17 09:35 | Inpatient (IN) | payer OTHER ==
[2018-03-17] MEDS ORDERED: GUAIFENESIN/CODEINE PHOS 100-10 MG/ 5 ML UDC PO ONE (10:06)
[2018-03-17] MEDS ORDERED: METHYLPREDNISOLONE ACETATE INJ 80 MG/1 ML VIAL IM ONE (10:06)
[2018-03-17] MEDS ORDERED: IPRATROPIUM/ALBUTEROL 0.5-2.5 MG/3 ML AMPUL NEB ONE ×2 (10:06→11:33)
[2018-03-17] MEDS ORDERED: NORMAL SALINE 1000 ML 1,000 ML IV ONE (10:08)
[2018-03-17] MEDS ORDERED: FENTANYL CITRATE INJ/PF 100 MCG/2 ML AMPUL IV ONE (10:36)
--- NOTE | 2018-03-17 10:40 | ER Document Report ---
ED Medical Screen (RME) - General Chief Complaint: Chest Congestion Stated Complaint: CONGESTION, COUGH Time Seen by Provider: 03/17/18 10:05 Notes: 47 years old male presents today with persistent cough and wheezing, he has been treated with 1 round of antibiotic already. Had a chest x-ray done at the primary care office yesterday was reported as normal with no pneumonia. He took his breathing treatment this morning came to the ER with coughing coughing hard. He has a long history of cardiac disease, had a STEMI at the age of 40 and bypass subsequently. Since then he states the sternum was not healing well and having pain. On fentanyl patch. Prior to coming to the ED he claims that he took his fentanyl patch off. While he was waiting for blood to be drawn he had passing out episodes. When I looked at it it looks like a [id number]-[id number] activity. Waking up almost instantly. He wakes up and looks at me and stays"I do not look good, do not I" . Then passing out. TRAVEL OUTSIDE OF THE [place] IN LAST 30 DAYS: No - Related Data Allergies/Adverse Reactions: morphine [Morphine] Allergy (Severe, Verified 03/17/18 09:37) phycosis Past Medical History - Social History Chew tobacco use (# tins/day): No Frequency of alcohol use: None Drug Abuse: None - Past Medical History Cardiac Medical History: Reports: Hx Coronary Artery Disease, Hx Heart Attack - 2011, Hx Hypercholesterolemia, Hx Hypertension Pulmonary Medical History: Reports: Hx Pneumonia Denies: Hx Tuberculosis Neurological Medical History: Reports: Hx Cerebrovascular Accident, Hx Migraine , Hx Seizures Endocrine Medical History: Reports: Hx Diabetes Mellitus Type 1, Hx Diabetes Mellitus Type 2 Renal/ Medical History: Denies: Hx Peritoneal Dialysis GI Medical History: Reports: Hx Gastroesophageal Reflux Disease Psychiatric Medical History: Reports: Hx Depression Past Surgical History: Reports: Hx Appendectomy, Hx Cardiac Catheterization - stents 2014, Hx Cardiac Surgery - CABGx3, stents, Hx Coronary Artery Bypass Graft - Triple Bypass June 2011, Hx Open Heart Surgery - CABG 2011, Hx Orthopedic Surgery - Right knee, right shoulder.. Denies: Hx Pacemaker - Immunizations Hx Diphtheria, Pertussis, Tetanus Vaccination: Yes Physical Exam - Vital signs Vitals: Temp Pulse Resp BP Pulse Ox 98.2 F 95 19 158/84 H 93 03/17/18 09:40 03/17/18 09:40 03/17/18 09:40 03/17/18 09:40 03/17/18 09:40 Course - Vital Signs Vital signs: Temp Pulse Resp BP Pulse Ox 98.2 F 95 19 158/84 H 93 03/17/18 09:40 03/17/18 09:40 03/17/18 09:40 03/17/18 09:40 03/17/18 09:40 Doctor's Discharge - Discharge Referrals: BETSY OVIEDO PA-C [Primary Care Provider] - Follow up as needed
[2018-03-17 10:46] LABS: HEMOGLOBIN 17.6 g/dL (13.5-17.0); MEAN CORPUSCULAR HEMOGLOBIN 32.1 pg (27.0-33.4); MEAN CORPUSCULAR HGB CONC 34.5 g/dL (32.0-36.0); MEAN CORPUSCULAR VOLUME 93 fl (80-97); PLATELET COUNT 218 10^3/uL (150-450); RED BLOOD COUNT 5.48 10^6/uL (4.35-5.55); RED CELL DISTRIBUTION WIDTH 13.7 % (11.5-14.0); WHITE BLOOD COUNT 22.7 10^3/uL (4.0-10.5)
--- NOTE | 2018-03-17 10:51 | ER Document Report ---
ED General - General Chief Complaint: Chest Congestion Stated Complaint: CONGESTION, COUGH Time Seen by Provider: 03/17/18 10:05 Mode of Arrival: Ambulatory Information source: Patient Notes: This is a 47-year-old man with a history of COPD (still smoking), CABG, CVA, seizures who presents to the emergency room with difficulty breathing, shortness of breath, cough, wheezing in the setting of a lung infection for the last week. TRAVEL OUTSIDE OF THE [place] IN LAST 30 DAYS: No - HPI Onset: Last week Onset/Duration: Gradual Quality of pain: Dull Severity: Moderate Pain Level: 3 Associated symptoms: Nonproductive cough, Fever, Shortness of breath Exacerbated by: Movement Relieved by: Denies Similar symptoms previously: Yes Recently seen / treated by doctor: Yes - Related Data Allergies/Adverse Reactions: morphine [Morphine] Allergy (Severe, Verified 03/17/18 09:37) phycosis Past Medical History - General Information source: Patient - Social History Smoking Status: Current Every Day Smoker Cigarette use (# per day): Yes - Half pack per day Chew tobacco use (# tins/day): No Frequency of alcohol use: None Drug Abuse: None Lives with: Family Family History: CAD Patient has suicidal ideation: No Patient has homicidal ideation: No - Past Medical History Cardiac Medical History: Reports: Hx Coronary Artery Disease, Hx Heart Attack - 2011, Hx Hypercholesterolemia, Hx Hypertension Pulmonary Medical History: Reports: Hx Pneumonia Denies: Hx Tuberculosis Neurological Medical History: Reports: Hx Cerebrovascular Accident, Hx Migraine , Hx Seizures Endocrine Medical History: Reports: Hx Diabetes Mellitus Type 1, Hx Diabetes Mellitus Type 2 Renal/ Medical History: Denies: Hx Peritoneal Dialysis GI Medical History: Reports: Hx Gastroesophageal Reflux Disease Psychiatric Medical History: Reports: Hx Depression Past Surgical History: Reports: Hx Appendectomy, Hx Cardiac Catheterization - stents 2014, Hx Cardiac Surgery - CABGx3, stents, Hx Coronary Artery Bypass Graft - Triple Bypass June 2011, Hx Open Heart Surgery - CABG 2011, Hx Orthopedic Surgery - Right knee, right shoulder.. Denies: Hx Pacemaker - Immunizations Hx Diphtheria, Pertussis, Tetanus Vaccination: Yes Hx Pneumococcal Vaccination: 04/18/09 Review of Systems - Review of Systems Constitutional: denies: Chills, Fever EENT: No symptoms reported Cardiovascular: No symptoms reported Respiratory: See HPI Gastrointestinal: No symptoms reported Genitourinary: No symptoms reported Male Genitourinary: No symptoms reported Musculoskeletal: Other - General wall pain Skin: No symptoms reported Hematologic/Lymphatic: No symptoms reported Neurological/Psychological: No symptoms reported Physical Exam - Vital signs Vitals: Temp Pulse Resp BP Pulse Ox 98.2 F 95 19 158/84 H 93 03/17/18 09:40 03/17/18 09:40 03/17/18 09:40 03/17/18 09:40 03/17/18 09:40 Notes: Physical exam: GENERAL: Patient is alert and oriented x3, significant respiratory distress, accessory muscle use HEAD: Atraumatic, normocephalic. EYES: Pupils equal round and reactive to light, extraocular movements intact, sclera anicteric, conjunctiva are normal. ENT: TMs normal, nares patent, oropharynx clear without exudates. Moist mucous membranes. NECK: Normal range of motion, supple without obvious mass or JVD. LUNGS: Bilateral wheezing, accessory muscle use HEART: Regular rate and rhythm without murmurs, rubs or gallops. ABDOMEN: Soft, normoactive bowel sounds. No tenderness to palpation. No guarding, no rebound. No masses appreciated. EXTREMITIES: Normal range of motion, no pitting or edema. No clubbing or cyanosis. NEUROLOGICAL: Cranial nerves II through XII grossly intact. Normal speech, moving all extremities. PSYCH: Normal mood, normal affect. SKIN: Warm, Dry, normal turgor, no rashes or lesions noted. Course - Re-evaluation Re-evalutation: 03/17/18 20:48 Patient was given IV fluids, IV magnesium, IV Solu-Medrol, IV ceftriaxone. Patient was started on BiPAP. Patient was given nebulized lidocaine and a small amount of IV Haldol for bronchial discomfort. Patient was given IV narcotics for sternal pain which is chronic from his surgery. - Vital Signs Vital signs: Temp Pulse Resp BP Pulse Ox 98.2 F 95 23 H 123/86 H 95 03/17/18 09:40 03/17/18 09:40 03/17/18 18:01 03/17/18 18:01 03/17/18 18:01 - Laboratory Result Diagrams: 03/17/18 10:27 03/17/18 10:27 Laboratory results interpreted by me: 03/17/18 03/17/18 03/17/18 10:27 10:27 12:24 WBC 22.7 H Hgb 17.6 H Seg Neuts % (Manual) 92 H Band Neutrophils % 2 L Lymphocytes % (Manual) 5 L Monocytes % (Manual) 1 L Abs Neuts (Manual) 21.3 H ABG pO2 55.9 L ABG HCO3 24.4 H ABG O2 Saturation 87.9 L Glucose 325 H - Diagnostic Test Radiology reviewed: Image reviewed, Reports reviewed - X-ray shows no obvious infiltrate - EKG Interpretation by Me Rate: Normal Rhythm: NSR - EKG shows normal sinus rhythm with a ventricular rate of 93, right bundleoid pattern. Critical Care Note - Critical Care Note Total time excluding time spent on procedures (mins): 90 Discharge - Discharge Clinical Impression: COPD exacerbation Condition: Stable Disposition: ADMITTED INPATIENT Admitting Provider: Hospitalist - Dr Salas Unit Admitted: [facility]
--- NOTE | 2018-03-17 11:00 | RADIOLOGY REPORT (SQ) ---
EXAM DESCRIPTION: CHEST SINGLE VIEW COMPLETED DATE/TIME: 03/17/2018 10:50 am REASON FOR STUDY: cough COMPARISON: 11/16/2017 EXAM PARAMETERS: NUMBER OF VIEWS: One view. TECHNIQUE: Single frontal radiographic view of the chest acquired. RADIATION DOSE: NA LIMITATIONS: None. FINDINGS: LUNGS AND PLEURA: No opacities, masses or pneumothorax. No pleural effusion. MEDIASTINUM AND HILAR STRUCTURES: No masses. Contour normal. HEART AND VASCULAR STRUCTURES: Heart normal in size. Normal vasculature. BONES: No acute findings. HARDWARE: Sternotomy wires are in place. OTHER: No other significant finding. IMPRESSION: NO ACUTE RADIOGRAPHIC FINDING IN THE CHEST. TECHNICAL DOCUMENTATION: JOB ID: [id number] [employer]- All Rights Reserved Reading location - IP/workstation name: [email or web address]
[2018-03-17 11:14] LABS: ALANINE AMINOTRANSFERASE 46 U/L (21-72); ALBUMIN 4.4 g/dL (3.5-5.0); ALKALINE PHOSPHATASE 122 U/L (38-126); ANION GAP 15 (5-19); ASPARTATE AMINO TRANSFERASE 29 U/L (17-59); BILIRUBIN,DIRECT 0.3 mg/dL (0.0-0.4); BILIRUBIN,TOTAL 0.7 mg/dL (0.2-1.3); BLOOD UREA NITROGEN 17 mg/dL (7-20); CALCIUM 9.8 mg/dL (8.4-10.2); CARBON DIOXIDE 26 mmol/L (22-30); CHLORIDE 101 mmol/L (98-107); GLUCOSE 325 mg/dL (75-110); POTASSIUM 4.3 mmol/L (3.6-5.0); SODIUM 141.9 mmol/L (137-145); TOTAL PROTEIN 7.5 g/dL (6.3-8.2)
[2018-03-17 11:16] LABS: ABSOLUTE LYMPHOCYTES# (MANUAL) 1.1 10^3/uL (0.5-4.7); ABSOLUTE MONOCYTES # (MANUAL) 0.2 10^3/uL (0.1-1.4); ABSOLUTE NEUTROPHILS# (MANUAL) 21.3 10^3/uL (1.7-8.2); BAND NEUTROPHILS % (MANUAL) 2 % (3-5); BASOPHILS % (MANUAL) 0 % (0-2); EOSINOPHILS % (MANUAL) 0 % (0-6); LYMPHOCYTES % (MANUAL) 5 % (13-45); MONOCYTES % (MANUAL) 1 % (3-13); PLATELET COMMENT ADEQUATE; RBC MORPHOLOGY COMMENT NORMO-CYTIC/CHROMIC; SEGMENTED NEUTROPHILS % (MAN) 92 % (42-78); TOTAL CELLS COUNTED 100; TOXIC GRANULATION SLIGHT; TOXIC VACUOLATION PRESENT
[2018-03-17] MEDS ORDERED: HYDROMORPHONE HCL INJ/PF 2 MG/ML AMPULE IV ONE ×2 (11:33→13:57)
[2018-03-17] MEDS ORDERED: MAGNESIUM SULFATE/D5W 1 GM/100 ML RTUPB IV ONE (11:34)
[2018-03-17] MEDS ORDERED: LIDOCAINE 1% INJ-PF (10 MG/ML) 30 ML SDV NEB ONE (11:34)
[2018-03-17] MEDS ORDERED: CEFTRIAXONE 1 GM/D5W RTU 1 GM/50 ML RTUPB IV ONE ×2 (11:49→14:00)
[2018-03-17 12:41] LABS: ARTERIAL BLOOD BASE EXCESS -1.3 mmol/L; ARTERIAL BLOOD H2CO3 1.33 mmol/L (1.05-1.35); ARTERIAL BLOOD HCO3 24.4 mmol/L (20-24); ARTERIAL BLOOD O2 SATURATION 87.9 % (94-98); ARTERIAL BLOOD PCO2 44.1 mmHg (35-45); ARTERIAL BLOOD PH 7.36 (7.35-7.45); ARTERIAL BLOOD PO2 55.9 mmHg (80-100); ARTERIAL BLOOD TOTAL CO2 25.7 mmol/L (23-27)
[2018-03-17 12:42] LABS: ARTERIAL BLOOD FIO2 8L
[2018-03-17] MEDS ORDERED: HALOPERIDOL LACTATE INJ 5 MG/1 ML VIAL IV ONE (12:46)
--- NOTE | 2018-03-17 13:19 | EKG REPORT ---
SEVERITY:- BORDERLINE ECG - SINUS RHYTHM NONSPECIFIC ST-T CHANGES ANTEROSEPTAL LEADS : Confirmed by: Efraín Armando MD 17-Mar-2018 13:19:13
[2018-03-17] MEDS ORDERED: CEFTRIAXONE INJ 1000 MG VIAL ONE (13:49)
[2018-03-17] MEDS ORDERED: ACETAMINOPHEN 325 MG TABLET PO PRN (15:52)
[2018-03-17] MEDS ORDERED: IPRATROPIUM/ALBUTEROL 0.5-2.5 MG/3 ML AMPUL NEB PRN (15:52)
[2018-03-17] MEDS ORDERED: ONDANSETRON HCL INJ/PF 4 MG/2 ML SDV IV PRN (15:52)
[2018-03-17] MEDS ORDERED: NICOTINE 14 MG/24 HR PATCH.TD24 TD ONE ×2 (16:10→19:30)
[2018-03-17] MEDS ORDERED: DEXTROSE 40% GEL 15 GM TUBE PO PRN ×4 (16:29→16:30)
[2018-03-17] MEDS ORDERED: GLUCAGON,HUMAN RECOMB 1 MG INJ IM PRN ×2 (16:29→16:30)
[2018-03-17] MEDS ORDERED: DEXTROSE 50%-WATER 25 GM/50 ML DISP.SYRIN IV PRN ×4 (16:29→16:30)
--- NOTE | 2018-03-17 16:35 | PDOC H&P ---
History of Present Illness Admission Date/PCP: BETSY OVIEDO PA-C Patient complains of: Shortness of breath History of Present Illness: JOSE G TURPIN II is a 47 year old male With past medical history of COPD ,CABG WITH TRIPLE BYPASSin 2011 post STEMI in 2014, diabetes, hypertension, stroke in 1999, history of bipolar disorder, seizure disorder, osteoarthritis, smoker, came to the emergency room with complaints of symptoms of bronchitis for the last several days like cough with yellowish sputum, runny nose, wheezing, fever in association with chills, nausea vomiting diarrhea, and he said he went to see the primary care physician yesterday and was started on amoxicillin if the symptoms not improve he was advised to come to the emergency room. As per the patient and the family symptoms are even gotten worse from last night so they decided to come to the emergency room today. Patient try to use the nebulizer at home without any much improvement. Patient is never been admitted with these symptoms before. Patient denies any headaches falls or dizzy spells. Denies any skin rashes. The emergency room patient was placed on BiPAP blood cultures were done and consult for admission was requested. Past Medical History Cardiac Medical History: Reports: Coronary Artery Disease, Myocardial Infarction - 2011, Hyperlipidema, Hypertension Pulmonary Medical History: Reports: Bronchitis, Pneumonia Denies: Tuberculosis Neurological Medical History: Reports: Ischemic CVA, Migraine, Seizures Endocrine Medical History: Reports: Diabetes Mellitus Type 1, Diabetes Mellitus Type 2 GI Medical History: Reports: Gastroesophageal Reflux Disease Musculoskeltal Medical History: Reports: Arthritis Psychiatric Medical History: Reports: Bipolar Disorder, Depression Past Surgical History Past Surgical History: Reports: Appendectomy, Cardiac Catheterization - stents 2014, Coronary Artery Bypass Graft - Triple Bypass June 2011, Orthopedic Surgery - Right knee, right shoulder. Denies: Pacemaker Social History Smoking Status: Current Every Day Smoker Frequency of Alcohol Use: Occasional Hx Recreational Drug Use: No Hx Prescription Drug Abuse: No Family History Family History: CAD Parental Family History Reviewed: Yes - Father with history of heart problems Children Family History Reviewed: Yes Sibling(s) Family History Reviewed.: Unknown - Rest of the siblings have history of diabetes hypertension and heart problems. Medication/Allergy Allergies/Adverse Reactions: morphine [Morphine] Allergy (Severe, Verified 03/17/18 09:37) phycosis Review of Systems Constitutional: PRESENT: chills, fever(s) Eyes: ABSENT: visual disturbances Ears: ABSENT: hearing changes Nose, Mouth, and Throat: PRESENT: other - Complaining of runny nose.. ABSENT: mouth pain Cardiovascular: PRESENT: chest pain, dyspnea on exertion Respiratory: PRESENT: cough, dyspnea, sputum. ABSENT: hemoptysis Gastrointestinal: PRESENT: diarrhea, nausea, vomiting Musculoskeletal: PRESENT: other - complaining of body aches and muscle aches. Neurological: ABSENT: focal weakness, frequent falls, syncope Psychiatric: ABSENT: anxiety, depression, hallucinations Endocrine: ABSENT: cold intolerance, heat intolerance Hematologic/Lymphatic: ABSENT: easy bruising, lymphadenopathy Physical Exam Vital Signs: Temp Pulse Resp BP Pulse Ox 98.2 F 95 18 117/80 98 03/17/18 09:40 03/17/18 09:40 03/17/18 12:11 03/17/18 11:01 03/17/18 12:11 Intake & Output 03/16/18 03/17/18 03/18/18 06:59 06:59 06:59 Intake Total 1100 Balance 1100 Weight 100.6 kg General appearance: PRESENT: mild distress, obese Head exam: PRESENT: atraumatic Eye exam: PRESENT: PERRLA Mouth exam: PRESENT: moist, tongue midline Throat exam: ABSENT: post pharyngeal erythema, tonsillar erythema Neck exam: ABSENT: carotid bruit, JVD, lymphadenopathy, thyromegaly Respiratory exam: PRESENT: decreased breath sounds, rhonchi, tachypnea, wheezes , other - Patient is on BiPAP on examination chest bilateral entry was severely decreased associated with wheezes and rhonchi. Cardiovascular exam: PRESENT: tachycardia, other - Previous surgical scar over the sternum. GI/Abdominal exam: PRESENT: normal bowel sounds, soft. ABSENT: tenderness Neurological exam: PRESENT: alert, awake, oriented to person, oriented to place , oriented to time, oriented to situation, CN II-XII grossly intact. ABSENT: motor sensory deficit Psychiatric exam: PRESENT: appropriate affect, normal mood. ABSENT: homicidal ideation, suicidal ideation Results Laboratory Results: 03/17/18 10:27 03/17/18 10:27 03/17/18 03/17/18 03/17/18 10:27 10:27 12:24 WBC 22.7 H RBC 5.48 Hgb 17.6 H Hct 51.0 MCV 93 MCH 32.1 MCHC 34.5 RDW 13.7 Plt Count 218 Seg Neutrophils % Not Reportable Lymphocytes % Not Reportable Monocytes % Not Reportable Eosinophils % Not Reportable Basophils % Not Reportable Absolute Neutrophils Not Reportable Absolute Lymphocytes Not Reportable Absolute Monocytes Not Reportable Absolute Eosinophils Not Reportable Absolute Basophils Not Reportable Carbonic Acid 1.33 HCO3/H2CO3 Ratio 18:1 ABG pH 7.36 ABG pCO2 44.1 ABG pO2 55.9 L ABG HCO3 24.4 H ABG O2 Saturation 87.9 L ABG Base Excess -1.3 FiO2 8L Sodium 141.9 Potassium 4.3 Chloride 101 Carbon Dioxide 26 Anion Gap 15 BUN 17 Creatinine 0.86 Est GFR ( Amer) > 60 Est GFR (Non-Af Amer) > 60 Glucose 325 H Calcium 9.8 Total Bilirubin 0.7 AST 29 ALT 46 Alkaline Phosphatase 122 Total Protein 7.5 Albumin 4.4 03/17/18 03/17/18 10:27 13:50 Troponin I < 0.012 NT-Pro-B Natriuret Pep 121 Impressions: Chest X-Ray 03/17/18 00:00 IMPRESSION: NO ACUTE RADIOGRAPHIC FINDING IN THE CHEST. Assessment & Plan - Diagnosis (1) COPD exacerbation Is this a current diagnosis for this admission?: Yes Plan: 03/17/2018 patient was placed on BiPAP with inspiratory pressure of 16 expiratory pressure of 6 respiratory rate of 8 and FiO2 of 60%. He was started on IV Solu-Medrol 125 mg every 6 hours, Xopenex nebulizations every 4 as needed , ipratropium ,nebulizations every 4 as needed, and was also started on IV antibiotic therapy ceftriaxone 1 gram iv, Levafloxacillin 5 mg IV daily. Order for incentive spirometry was placed. Cultures and sputum cultures were requested. The ABG was done on BiPAP. PH is 7.34, PCO2 44 PO2 is 56 oxygen saturation is 88%. Due to the ABGs on as needed basis. (3) S/P CABG (coronary artery bypass graft) Is this a current diagnosis for this admission?: Yes Plan: 05/17/2017 patient history of coronary artery disease status post triple vessel bypass 2011 followed by STEMI in 2014. Patient is complaining of chest pain in the emergency room cardiac enzymes every 6 were requested. Initial troponin is less than 0.012. He was on Plavix 75 mg p.o. daily, metoprolol 25 mg p.o. daily , adjusted 5 mg p.o. daily at home and we are planning to resume those medications. He was started on Lovenox 40 mg subcu daily. (4) Stroke Qualifiers: Laterality of affected vessel: unspecified Is this a current diagnosis for this admission?: Yes Plan: 03/17/2018 patient is given the history of stroke in 1999. No neurological deficits on examination. Patient alert and awake communicating well. (5) Smoker Is this a current diagnosis for this admission?: Yes Plan: 03/17/2018 and is giving the history of chronic smoking, he smokes 4-5 cigarettes/day. Smoking counseling was provided for more than 10 minutes. Nicotine patch was ordered. (6) Diabetes 1.5, managed as type 2 Is this a current diagnosis for this admission?: Yes Plan: 03/17/2018 patient given the history of diabetes type 2 he is on metformin 500 mg p.o. twice daily at home he thinks his hemoglobin A1c was around 7. Going to stop his metformin held during the hospital stay. (7) Bipolar 1 disorder Is this a current diagnosis for this admission?: Yes Plan: 03/17/2018Patient has history of bipolar disorder. Is taking Lamictal unknown dose, Klonopin 1 mg p.o. 3 times daily. To restart his home medications. (8) Chest pain Qualifiers: Ischemic chest pain type: unspecified angina pectoris type Is this a current diagnosis for this admission?: Yes Plan: 05/17/2017 patient complaint of left-sided chest pain troponin is less than 0.012 and order for cardiac enzymes x3 along with EKGs and he was on Lovenox 40 mg subcu daily and Plavix 75 mg p.o. daily" replacement aspirin 325 mg p.o. daily. - Time Time Spent: 50 to 70 Minutes Medications reviewed and adjusted accordingly: Yes Anticipated discharge: Home
[2018-03-17] MEDS ORDERED: FENTANYL 50 MCG/HR PATCH.TD72 TD ONE ×2 (17:00→19:30)
[2018-03-17] MEDS: LEVOFLOXACIN 500 MG/D5W RTU 500 MG/100 ML RTUPB IV SCH (19:16)
[2018-03-17] MEDS: CLONAZEPAM 1 MG TABLET PO SCH (19:16)
[2018-03-17] MEDS: ENOXAPARIN SODIUM INJ 40 MG/0.4 ML DISP.SYRIN SUBCUT SCH (19:16)
[2018-03-17] MEDS: LEVALBUTEROL HCL NEB 0.63 MG/3 ML AMPUL NEB SCH (20:17)
[2018-03-17] MEDS: NORMAL SALINE 1000 ML 1,000 ML IV PRN (20:32)
[2018-03-17 20:36] LABS: CREATINE KINASE MB 0.29 ng/mL (<4.55)
[2018-03-17 20:40] LABS: TROPONIN I < 0.012 ng/mL
[2018-03-17] MEDS: OXYCODONE-ACETAMINOPHEN 5-325 MG TABLET PO PRN (21:24)
[2018-03-17] MEDS: PANTOPRAZOLE SODIUM 40 MG VIAL IV SCH (21:25)
[2018-03-17] MEDS: METHYLPREDNISOLONE INJ 125 MG/2 ML SDV IV SCH (21:25)
[2018-03-17] MEDS: INSULIN REG, HUMAN 100 UNIT/ML 3 ML VIAL (PYX) SUBCUT PRN (22:15)
[2018-03-18] MEDS: LEVALBUTEROL HCL NEB 0.63 MG/3 ML AMPUL NEB SCH ×3 (02:09→13:51)
[2018-03-18 02:38] LABS: CREATINE KINASE MB 0.36 ng/mL (<4.55)
[2018-03-18 02:43] LABS: TROPONIN I < 0.012 ng/mL
[2018-03-18] MEDS: OXYCODONE-ACETAMINOPHEN 5-325 MG TABLET PO PRN ×3 (03:27→15:06)
[2018-03-18] MEDS: METHYLPREDNISOLONE INJ 125 MG/2 ML SDV IV SCH ×2 (05:07→17:28)
[2018-03-18 05:35] LABS: ARTERIAL BLOOD BASE EXCESS -0.8 mmol/L; ARTERIAL BLOOD H2CO3 1.44 mmol/L (1.05-1.35); ARTERIAL BLOOD HCO3 25.4 mmol/L (20-24); ARTERIAL BLOOD O2 SATURATION 93.7 % (94-98); ARTERIAL BLOOD PCO2 47.7 mmHg (35-45); ARTERIAL BLOOD PH 7.35 (7.35-7.45); ARTERIAL BLOOD PO2 72.5 mmHg (80-100); ARTERIAL BLOOD TOTAL CO2 26.9 mmol/L (23-27)
[2018-03-18 05:38] LABS: ARTERIAL BLOOD FIO2 ROOM AIR
[2018-03-18 07:31] LABS: HEMATOCRIT 45.3 % (37.9-51.0); HEMOGLOBIN 15.6 g/dL (13.5-17.0); MEAN CORPUSCULAR HGB CONC 34.4 g/dL (32.0-36.0); MEAN CORPUSCULAR VOLUME 93 fl (80-97); PLATELET COUNT 161 10^3/uL (150-450); RED BLOOD COUNT 4.86 10^6/uL (4.35-5.55); RED CELL DISTRIBUTION WIDTH 13.6 % (11.5-14.0); WHITE BLOOD COUNT 21.9 10^3/uL (4.0-10.5)
[2018-03-18 07:40] LABS: ALANINE AMINOTRANSFERASE 34 U/L (21-72); ALBUMIN 3.8 g/dL (3.5-5.0); ALKALINE PHOSPHATASE 92 U/L (38-126); ANION GAP 14 (5-19); ASPARTATE AMINO TRANSFERASE 29 U/L (17-59); BILIRUBIN,DIRECT 0.3 mg/dL (0.0-0.4); BILIRUBIN,TOTAL 0.6 mg/dL (0.2-1.3); BLOOD UREA NITROGEN 19 mg/dL (7-20); CALCIUM 9.1 mg/dL (8.4-10.2); CARBON DIOXIDE 22 mmol/L (22-30); CHLORIDE 104 mmol/L (98-107); CREATINE KINASE 333 U/L (55-170); GLUCOSE 387 mg/dL (75-110); SODIUM 140.3 mmol/L (137-145); TOTAL PROTEIN 6.5 g/dL (6.3-8.2)
[2018-03-18 07:50] LABS: CREATINE KINASE MB 0.55 ng/mL (<4.55)
[2018-03-18 07:58] LABS: TROPONIN I < 0.012 ng/mL
[2018-03-18 07:59] LABS: POTASSIUM 5.3 mmol/L (3.6-5.0)
[2018-03-18 08:07] LABS: ABSOLUTE MONOCYTES # (MANUAL) 0.2 10^3/uL (0.1-1.4); ABSOLUTE NEUTROPHILS# (MANUAL) 19.7 10^3/uL (1.7-8.2); BASOPHILS % (MANUAL) 0 % (0-2); EOSINOPHILS % (MANUAL) 0 % (0-6); LYMPHOCYTES % (MANUAL) 9 % (13-45); MONOCYTES % (MANUAL) 1 % (3-13); SEGMENTED NEUTROPHILS % (MAN) 90 % (42-78); TOTAL CELLS COUNTED 100
[2018-03-18 08:08] LABS: PLATELET COMMENT ADEQUATE
[2018-03-18] MEDS: INSULIN REG, HUMAN 100 UNIT/ML 3 ML VIAL (PYX) SUBCUT PRN ×4 (08:38→22:21)
[2018-03-18] MEDS: NORMAL SALINE 1000 ML 1,000 ML IV PRN (08:38)
--- NOTE | 2018-03-18 09:15 | PDOC PROGRESS REPORT ---
Subjective Progress Note for:: 03/18/18 Subjective:: 03/18/2018 7-year-old male admitted with COPD exacerbation he was placed on BiPAP in the ER started on IV Solu-Medrol every 8 hours DuoNeb nebulizations incentive spirometry the blood cultures were sent and is feeling much much better today he is expressing desire to go home but I explained to him that it is too early to go home because of the condition he came in with and also told him the blood cultures are pending he agreed to stay until tomorrow otherwise he is feeling much better but complaining of still shortness of breath and wheezing. Reason For Visit: COPD EXACERBATION Physical Exam Vital Signs: Temp Pulse Resp BP Pulse Ox 98.0 F 81 18 133/72 H 93 03/18/18 07:38 03/18/18 07:38 03/18/18 07:38 03/18/18 07:38 03/18/18 07:38 Intake & Output 03/17/18 03/18/18 03/19/18 06:59 06:59 06:59 Intake Total 300 908 Output Total 350 Balance -50 908 Weight 103.6 kg General appearance: PRESENT: no acute distress Head exam: PRESENT: atraumatic Eye exam: PRESENT: PERRLA Neck exam: ABSENT: carotid bruit, JVD, lymphadenopathy, thyromegaly Respiratory exam: PRESENT: rales, wheezes Cardiovascular exam: PRESENT: tachycardia, other - Surgical scar over the sternum GI/Abdominal exam: PRESENT: normal bowel sounds, soft, other. ABSENT: tenderness Neurological exam: PRESENT: alert, awake, oriented to person, oriented to place , oriented to time, oriented to situation, CN II-XII grossly intact. ABSENT: motor sensory deficit Psychiatric exam: PRESENT: appropriate affect, normal mood. ABSENT: homicidal ideation, suicidal ideation Results Laboratory Results: 03/18/18 07:04 03/18/18 07:04 03/18/18 03/18/18 03/18/18 05:20 07:04 07:04 WBC 21.9 H RBC 4.86 Hgb 15.6 Hct 45.3 MCV 93 MCH 32.0 MCHC 34.4 RDW 13.6 Plt Count 161 Seg Neutrophils % Not Reportable Lymphocytes % Not Reportable Monocytes % Not Reportable Eosinophils % Not Reportable Basophils % Not Reportable Absolute Neutrophils Not Reportable Absolute Lymphocytes Not Reportable Absolute Monocytes Not Reportable Absolute Eosinophils Not Reportable Absolute Basophils Not Reportable Carbonic Acid 1.44 H HCO3/H2CO3 Ratio 17:1 ABG pH 7.35 ABG pCO2 47.7 H ABG pO2 72.5 L ABG HCO3 25.4 H ABG O2 Saturation 93.7 L ABG Base Excess -0.8 FiO2 ROOM AIR Sodium 140.3 Potassium 5.3 H D Chloride 104 Carbon Dioxide 22 Anion Gap 14 BUN 19 Creatinine 0.80 Est GFR ( Amer) > 60 Est GFR (Non-Af Amer) > 60 Glucose 387 H Calcium 9.1 Magnesium 2.4 H Total Bilirubin 0.6 AST 29 ALT 34 Alkaline Phosphatase 92 Total Protein 6.5 Albumin 3.8 TSH 03/18/18 07:04 WBC RBC Hgb Hct MCV MCH MCHC RDW Plt Count Seg Neutrophils % Lymphocytes % Monocytes % Eosinophils % Basophils % Absolute Neutrophils Absolute Lymphocytes Absolute Monocytes Absolute Eosinophils Absolute Basophils Carbonic Acid HCO3/H2CO3 Ratio ABG pH ABG pCO2 ABG pO2 ABG HCO3 ABG O2 Saturation ABG Base Excess FiO2 Sodium Potassium Chloride Carbon Dioxide Anion Gap BUN Creatinine Est GFR ( Amer) Est GFR (Non-Af Amer) Glucose Calcium Magnesium Total Bilirubin AST ALT Alkaline Phosphatase Total Protein Albumin TSH 0.49 03/17/18 03/17/18 03/18/18 19:45 19:45 01:52 Creatine Kinase 165 190 H CK-MB (CK-2) 0.29 Troponin I < 0.012 03/18/18 03/18/18 03/18/18 01:52 07:04 07:04 Creatine Kinase 333 H CK-MB (CK-2) 0.36 0.55 Troponin I < 0.012 < 0.012 Impressions: Chest X-Ray 03/17/18 00:00 IMPRESSION: NO ACUTE RADIOGRAPHIC FINDING IN THE CHEST. Assessment & Plan - Diagnosis (1) COPD exacerbation Is this a current diagnosis for this admission?: Yes Plan: 03/17/2018 patient was placed on BiPAP with inspiratory pressure of 16 expiratory pressure of 6 respiratory rate of 8 and FiO2 of 60%. He was started on IV Solu-Medrol 125 mg every 6 hours, Xopenex nebulizations every 4 as needed , ipratropium ,nebulizations every 4 as needed, and was also started on IV antibiotic therapy ceftriaxone 1 gram iv, Levafloxacillin 5 mg IV daily. Order for incentive spirometry was placed. Cultures and sputum cultures were requested. The ABG was done on BiPAP. PH is 7.34, PCO2 44 PO2 is 56 oxygen saturation is 88%. Due to the ABGs on as needed basis. 03/18/2018 patient is feeling much better today. Is complaining of less shortness of breath and less wheezing. He was on BiPAP initially with respiratory rate of 16 and expiratory rate of 6 respiratory rate of 8 and FiO2 of 60% he is off the BiPAP right now on examination advised him to use the BiPAP as needed on examination chest bilateral entry was much improved still extensive wheezing is present he is tachycardic. Also no mild shortness of breath. ABG was done this morning. ABG today pH is 7.35/PCO2 47/PO2 72/bicarb is 25. We will continue IV antibiotic therapy and planning to cut down IV Solu- Medrol to every 12 hours. He is getting as needed nebulizations. (3) S/P CABG (coronary artery bypass graft) Is this a current diagnosis for this admission?: Yes Plan: 05/17/2017 patient history of coronary artery disease status post triple vessel bypass 2011 followed by STEMI in 2014. Patient is complaining of chest pain in the emergency room cardiac enzymes every 6 were requested. Initial troponin is less than 0.012. He was on Plavix 75 mg p.o. daily, metoprolol 25 mg p.o. daily , lisinopril. 5 mg p.o. daily. and we are planning to resume those medications. He was started on Lovenox 40 mg subcu daily. 03/18/2018 she has history of coronary artery disease status post triple bypass in 2011, STEMI in 2014. In the emergency room he complains of left-sided chest pains. EKGs and cardiac enzymes are negative so far. Presently is on Lovenox 40 mg subcu daily for DVT prophylaxis, is on Plavix 75 mg daily, metoprolol 25 mg p.o. daily, he is also on zestril 5 mg p.o. daily. We will continue the current management. (4) Stroke Qualifiers: Laterality of affected vessel: unspecified Is this a current diagnosis for this admission?: Yes Plan: 03/17/2018 patient is given the history of stroke in 1999. No neurological deficits on examination. Patient alert and awake communicating well. 03/18/2018 patient is alert awake communicating well on examination no focal neurological deficits. (5) Smoker Is this a current diagnosis for this admission?: Yes Plan: 03/17/2018 and is giving the history of chronic smoking, he smokes 4-5 cigarettes/day. Smoking counseling was provided for more than 10 minutes. Nicotine patch was ordered. 03/18/2018 chronic smoker. Smoking counseling was provided for more than 10 minutes. (6) Diabetes 1.5, managed as type 2 Is this a current diagnosis for this admission?: Yes Plan: 03/17/2018 patient given the history of diabetes type 2 he is on metformin 500 mg p.o. twice daily at home he thinks his hemoglobin A1c was around 7. Going to stop his metformin held during the hospital stay. 03/18/2018 patient has history of type 2 diabetes mellitus on metformin 500 mg p.o. twice daily. Hemoglobin A1c was 9.3. IV Solu-Medrol 125 mg every 8 hours. Blood sugar is 387. He is on sliding scale with regular insulin. He is to IV Solu-Medrol to 125 every 12 hours. Metformin is on hold. We will continue the present management. (7) Bipolar 1 disorder Is this a current diagnosis for this admission?: Yes Plan: 03/17/2018Patient has history of bipolar disorder. Is taking Lamictal unknown dose, Klonopin 1 mg p.o. 3 times daily. To restart his home medications. 03/18/2018 patient has history of bipolar disorder on Lamictal 200 mg p.o. twice daily, Klonopin 1 mg p.o. 3 times daily I am going to restart his Lamictal. (8) Chest pain Qualifiers: Ischemic chest pain type: unspecified angina pectoris type Is this a current diagnosis for this admission?: Yes Plan: 03/17/2018 patient complaint of left-sided chest pain troponin is less than 0.012 and order for cardiac enzymes x3 along with EKGs and he was on Lovenox 40 mg subcu daily and Plavix 75 mg p.o. daily" replacement aspirin 325 mg p.o. daily. 03/18/2018 she complains of chest pain during the ER stay. So further cardiac enzymes are negative he chest pain-free today. - Time Time Spent with patient: 15-24 minutes Medications reviewed and adjusted accordingly: Yes Anticipated discharge: Home
[2018-03-18] MEDS: ENOXAPARIN SODIUM INJ 40 MG/0.4 ML DISP.SYRIN SUBCUT SCH (09:54)
[2018-03-18] MEDS: CLONAZEPAM 1 MG TABLET PO SCH ×3 (09:54→21:32)
[2018-03-18] MEDS: METOPROLOL TARTRATE 25 MG TABLET PO SCH (09:54)
[2018-03-18] MEDS: CLOPIDOGREL BISULFATE 75 MG TABLET PO SCH (09:54)
[2018-03-18] MEDS: LISINOPRIL 5 MG TABLET PO SCH (09:54)
[2018-03-18] MEDS: ASPIRIN 325 MG TABLET, ENT COATED PO SCH (09:54)
[2018-03-18] MEDS ORDERED: CEFTRIAXONE 1 GM/D5W RTU 1 GM/50 ML RTUPB IV SCH (10:00)
[2018-03-18] MEDS ORDERED: METHYLPREDNISOLONE INJ 125 MG/2 ML SDV IV SCH (10:00)
[2018-03-18] MEDS ORDERED: CEFTRIAXONE INJ 1000 MG VIAL IV SCH (10:00)
[2018-03-18] MEDS ORDERED: SODIUM POLYSTYRENE SULFONATE 15 GM/60 ML PO ONE (10:45)
[2018-03-18] MEDS: SIMVASTATIN 40 MG TABLET PO SCH (11:14)
[2018-03-18] MEDS: LAMOTRIGINE 100 MG TABLET PO SCH ×2 (11:15→21:34)
[2018-03-18] MEDS: OXYCODONE HCL IR 5 MG TABLET PO PRN ×3 (11:15→21:33)
[2018-03-18] MEDS: PANTOPRAZOLE SODIUM 40 MG VIAL IV SCH ×2 (11:16→22:00)
[2018-03-18] MEDS ORDERED: CEFTRIAXONE SODIUM 1,000 MG in DEXTROSE 5%-WATER 50 ML IV SCH (12:00)
[2018-03-18] MEDS: LEVOFLOXACIN 500 MG/D5W RTU 500 MG/100 ML RTUPB IV SCH (17:28)
[2018-03-18] MEDS ORDERED: LEVALBUTEROL HCL NEB 0.63 MG/3 ML AMPUL NEB PRN (17:56)
[2018-03-18] MEDS ORDERED: PAROXETINE HCL 20 MG TABLET PO ONE (19:45)
[2018-03-18] MEDS: GUAIFENESIN 600 MG TABLET.SA PO SCH (21:32)
[2018-03-19] MEDS: OXYCODONE HCL IR 5 MG TABLET PO PRN (04:23)
[2018-03-19] MEDS: OXYCODONE-ACETAMINOPHEN 5-325 MG TABLET PO PRN (04:24)
[2018-03-19] MEDS: CLONAZEPAM 1 MG TABLET PO SCH (05:06)
[2018-03-19] MEDS: METHYLPREDNISOLONE INJ 125 MG/2 ML SDV IV SCH (05:07)
[2018-03-19 05:37] LABS: HEMATOCRIT 43.8 % (37.9-51.0); MEAN CORPUSCULAR HEMOGLOBIN 31.7 pg (27.0-33.4); MEAN CORPUSCULAR HGB CONC 34.2 g/dL (32.0-36.0); MEAN CORPUSCULAR VOLUME 93 fl (80-97); PLATELET COUNT 151 10^3/uL (150-450); RED BLOOD COUNT 4.74 10^6/uL (4.35-5.55); RED CELL DISTRIBUTION WIDTH 13.8 % (11.5-14.0); WHITE BLOOD COUNT 21.2 10^3/uL (4.0-10.5)
[2018-03-19 05:56] LABS: ALANINE AMINOTRANSFERASE 36 U/L (21-72); ALBUMIN 3.4 g/dL (3.5-5.0); ALKALINE PHOSPHATASE 118 U/L (38-126); ANION GAP 13 (5-19); ASPARTATE AMINO TRANSFERASE 34 U/L (17-59); BILIRUBIN,DIRECT 0.2 mg/dL (0.0-0.4); BILIRUBIN,TOTAL 0.5 mg/dL (0.2-1.3); BLOOD UREA NITROGEN 23 mg/dL (7-20); CARBON DIOXIDE 26 mmol/L (22-30); CHLORIDE 101 mmol/L (98-107); GLUCOSE 309 mg/dL (75-110); SODIUM 140.4 mmol/L (137-145); TOTAL PROTEIN 5.9 g/dL (6.3-8.2)
[2018-03-19 06:11] LABS: POTASSIUM 4.2 mmol/L (3.6-5.0)
[2018-03-19 06:43] LABS: ABSOLUTE LYMPHOCYTES# (MANUAL) 1.9 10^3/uL (0.5-4.7); ABSOLUTE MONOCYTES # (MANUAL) 0.8 10^3/uL (0.1-1.4); ABSOLUTE NEUTROPHILS# (MANUAL) 18.4 10^3/uL (1.7-8.2); BASOPHILS % (MANUAL) 0 % (0-2); EOSINOPHILS % (MANUAL) 0 % (0-6); LYMPHOCYTES % (MANUAL) 9 % (13-45); MONOCYTES % (MANUAL) 4 % (3-13); SEGMENTED NEUTROPHILS % (MAN) 87 % (42-78); TOTAL CELLS COUNTED 100
[2018-03-19 06:48] LABS: OVALOCYTES SLIGHT; PLATELET COMMENT ADEQUATE; POIKILOCYTOSIS SLIGHT; TOXIC GRANULATION 1+
[2018-03-19] MEDS: INSULIN REG, HUMAN 100 UNIT/ML 3 ML VIAL (PYX) SUBCUT PRN (08:38)
[2018-03-19 08:59] VITALS: BP 129/71
[2018-03-19] MEDS: SIMVASTATIN 40 MG TABLET PO SCH (09:35)
[2018-03-19] MEDS: ASPIRIN 325 MG TABLET, ENT COATED PO SCH (09:35)
[2018-03-19] MEDS: LISINOPRIL 5 MG TABLET PO SCH (09:35)
[2018-03-19] MEDS: LAMOTRIGINE 100 MG TABLET PO SCH (09:35)
[2018-03-19] MEDS: CLOPIDOGREL BISULFATE 75 MG TABLET PO SCH (09:36)
[2018-03-19] MEDS: GUAIFENESIN 600 MG TABLET.SA PO SCH (09:36)
[2018-03-19] MEDS: METOPROLOL TARTRATE 25 MG TABLET PO SCH (09:36)
[2018-03-19] MEDS: PANTOPRAZOLE SODIUM 40 MG VIAL IV SCH (09:36)
[2018-03-19] MEDS: ENOXAPARIN SODIUM INJ 40 MG/0.4 ML DISP.SYRIN SUBCUT SCH (09:36)
--- NOTE | 2018-03-19 09:50 | PDOC PROGRESS REPORT ---
Subjective Progress Note for:: 03/19/18 Subjective:: 03/18/2018 47-year-old male admitted with COPD exacerbation he was placed on BiPAP in the ER started on IV Solu-Medrol every 8 hours DuoNeb nebulizations incentive spirometry the blood cultures were sent and is feeling much much better today he is expressing desire to go home but I explained to him that it is too early to go home because of the condition he came in with and also told him the blood cultures are pending he agreed to stay until tomorrow otherwise he is feeling much better but complaining of still shortness of breath and wheezing. 03/19/2018 37-year-old male admitted with COPD exacerbation ended up on BiPAP. IV Solu-Medrol 125 mg every 12 hours, date of nebulizations. He is also receiving incentive spirometry. Blood cultures are negative so far. His sputum cultures are pending. Rocephin 1 g IV daily, levofloxacin 500 mg IV daily. Patient denies any complaints today. He is expressing desire to go home today. I explained to him that sputum culture is pending WBC still 21,000 and blood sugars are close to 300. He agreed to stay after talking to the . Reason For Visit: COPD EXACERBATION Physical Exam Vital Signs: Temp Pulse Resp BP Pulse Ox 97.8 F 57 L 16 130/75 H 95 03/19/18 08:57 03/19/18 08:57 03/19/18 08:57 03/19/18 08:57 03/19/18 08:57 Intake & Output 03/18/18 03/19/18 03/20/18 06:59 06:59 06:59 Intake Total 300 4630 Output Total 350 1751 Balance -50 2879 Weight 103.6 kg 109.2 kg General appearance: PRESENT: no acute distress, mild distress Head exam: PRESENT: atraumatic Eye exam: PRESENT: PERRLA Mouth exam: PRESENT: moist Neck exam: ABSENT: carotid bruit, JVD, lymphadenopathy, thyromegaly Respiratory exam: PRESENT: other - Mild bilateral wheezing on chest examination patient is off the BiPAP since last night Cardiovascular exam: PRESENT: tachycardia, other - Surgical scar over the sternum. GI/Abdominal exam: PRESENT: other - Obese abdomen soft nontender bowel sounds are present. Neurological exam: PRESENT: alert, awake, oriented to person, oriented to place , oriented to time, oriented to situation, CN II-XII grossly intact. ABSENT: motor sensory deficit Psychiatric exam: PRESENT: appropriate affect, normal mood. ABSENT: homicidal ideation, suicidal ideation Results Laboratory Results: 03/19/18 04:27 03/19/18 04:27 03/19/18 03/19/18 04:27 04:27 WBC 21.2 H RBC 4.74 Hgb 15.0 Hct 43.8 MCV 93 MCH 31.7 MCHC 34.2 RDW 13.8 Plt Count 151 Seg Neutrophils % Not Reportable Lymphocytes % Not Reportable Monocytes % Not Reportable Eosinophils % Not Reportable Basophils % Not Reportable Absolute Neutrophils Not Reportable Absolute Lymphocytes Not Reportable Absolute Monocytes Not Reportable Absolute Eosinophils Not Reportable Absolute Basophils Not Reportable Sodium 140.4 Potassium 4.2 D Chloride 101 Carbon Dioxide 26 Anion Gap 13 BUN 23 H Creatinine 0.76 Est GFR ( Amer) > 60 Est GFR (Non-Af Amer) > 60 Glucose 309 H Calcium 9.0 Magnesium 2.5 H Total Bilirubin 0.5 AST 34 ALT 36 Alkaline Phosphatase 118 Total Protein 5.9 L Albumin 3.4 L 03/17/18 03/17/18 03/18/18 19:45 19:45 01:52 Creatine Kinase 165 190 H CK-MB (CK-2) 0.29 Troponin I < 0.012 03/18/18 03/18/18 03/18/18 01:52 07:04 07:04 Creatine Kinase 333 H CK-MB (CK-2) 0.36 0.55 Troponin I < 0.012 < 0.012 Impressions: Chest X-Ray 03/17/18 00:00 IMPRESSION: NO ACUTE RADIOGRAPHIC FINDING IN THE CHEST. Assessment & Plan - Diagnosis (1) COPD exacerbation Is this a current diagnosis for this admission?: Yes Plan: 03/17/2018 patient was placed on BiPAP with inspiratory pressure of 16 expiratory pressure of 6 respiratory rate of 8 and FiO2 of 60%. He was started on IV Solu-Medrol 125 mg every 6 hours, Xopenex nebulizations every 4 as needed , ipratropium ,nebulizations every 4 as needed, and was also started on IV antibiotic therapy ceftriaxone 1 gram iv, Levafloxacillin 5 mg IV daily. Order for incentive spirometry was placed. Cultures and sputum cultures were requested. The ABG was done on BiPAP. PH is 7.34, PCO2 44 PO2 is 56 oxygen saturation is 88%. Due to the ABGs on as needed basis. 03/18/2018 patient is feeling much better today. Is complaining of less shortness of breath and less wheezing. He was on BiPAP initially with respiratory rate of 16 and expiratory rate of 6 respiratory rate of 8 and FiO2 of 60% he is off the BiPAP right now on examination advised him to use the BiPAP as needed on examination chest bilateral entry was much improved still extensive wheezing is present he is tachycardic. Also no mild shortness of breath. ABG was done this morning. ABG today pH is 7.35/PCO2 47/PO2 72/bicarb is 25. We will continue IV antibiotic therapy and planning to cut down IV Solu- Medrol to every 12 hours. He is getting as needed nebulizations. 03/19/2018 patient says he is feeling much better expressing desire to go home after long discussion he talked his and agreed to stay in the hospital. Is off the BiPAP since last night. His pulse ox today on room air is 95%. Patient is currently on IV Rocephin, IV Levaquin, IV Solu-Medrol 125 mg every 12 hours. He is getting nebulizations every 4 as needed. Decreased Solu- Medrol to 60 mg IV every 8 hours. Team for the sputum cultures. Blood cultures are negative. She will call the nurses station and told as he is leaving AGAINST MEDICAL ADVICE. (3) S/P CABG (coronary artery bypass graft) Is this a current diagnosis for this admission?: Yes Plan: 05/17/2017 patient history of coronary artery disease status post triple vessel bypass 2011 followed by STEMI in 2014. Patient is complaining of chest pain in the emergency room cardiac enzymes every 6 were requested. Initial troponin is less than 0.012. He was on Plavix 75 mg p.o. daily, metoprolol 25 mg p.o. daily , lisinopril. 5 mg p.o. daily. and we are planning to resume those medications. He was started on Lovenox 40 mg subcu daily. 03/18/2018 she has history of coronary artery disease status post triple bypass in 2011, STEMI in 2014. In the emergency room he complains of left-sided chest pains. EKGs and cardiac enzymes are negative so far. Presently is on Lovenox 40 mg subcu daily for DVT prophylaxis, is on Plavix 75 mg daily, metoprolol 25 mg p.o. daily, he is also on zestril 5 mg p.o. daily. We will continue the current management. 03/19/2018 patient denies any chest pains during the hospital stay initially complaints of chest pain in the ER cardiac enzymes and troponins came back negative EKGs came back negative. He is on DVT prophylaxis with Lovenox 40 mg subcu daily, and Plavix 75 mg p.o. daily, metoprolol 25 mg p.o. daily. He is also on aspirin 325 mg p.o. daily. (4) Stroke Qualifiers: Laterality of affected vessel: unspecified Is this a current diagnosis for this admission?: Yes Plan: 03/17/2018 patient is given the history of stroke in 1999. No neurological deficits on examination. Patient alert and awake communicating well. 03/18/2018 patient is alert awake communicating well on examination no focal neurological deficits. 03/19/2018 patient is given the history of stroke in 1999. Neuro examination is stable. No complications during this hospital stay. (5) Smoker Is this a current diagnosis for this admission?: Yes Plan: 03/17/2018 and is giving the history of chronic smoking, he smokes 4-5 cigarettes/day. Smoking counseling was provided for more than 10 minutes. Nicotine patch was ordered. 03/18/2018 chronic smoker. Smoking counseling was provided for more than 10 minutes. 03/19/2018 patient is a nicotine patch. Counseling was provided. (6) Diabetes 1.5, managed as type 2 Is this a current diagnosis for this admission?: Yes Plan: 03/17/2018 patient given the history of diabetes type 2 he is on metformin 500 mg p.o. twice daily at home he thinks his hemoglobin A1c was around 7. Going to stop his metformin held during the hospital stay. 03/18/2018 patient has history of type 2 diabetes mellitus on metformin 500 mg p.o. twice daily. Hemoglobin A1c was 9.3. IV Solu-Medrol 125 mg every 8 hours. Blood sugar is 387. He is on sliding scale with regular insulin. He is to IV Solu-Medrol to 125 every 12 hours. Metformin is on hold. We will continue the present management. 03/19/2018 patient latest blood sugar is 290 he is on IV Solu-Medrol 125 mg every 12 hours. Blood sugars are high because of Solu-Medrol. Explained to the patient to stay because of the high blood sugars but he is to leave AGAINST MEDICAL ADVICE. (7) Bipolar 1 disorder Is this a current diagnosis for this admission?: Yes Plan: 03/17/2018Patient has history of bipolar disorder. Is taking Lamictal unknown dose, Klonopin 1 mg p.o. 3 times daily. To restart his home medications. 03/18/2018 patient has history of bipolar disorder on Lamictal 200 mg p.o. twice daily, Klonopin 1 mg p.o. 3 times daily I am going to restart his Lamictal. 03/19/2018 has history of bipolar disorder on Klonopin and Lamictal. No complications during the hospital stay. (8) Chest pain Qualifiers: Ischemic chest pain type: unspecified angina pectoris type Is this a current diagnosis for this admission?: Yes Plan: 03/17/2018 patient complaint of left-sided chest pain troponin is less than 0.012 and order for cardiac enzymes x3 along with EKGs and he was on Lovenox 40 mg subcu daily and Plavix 75 mg p.o. daily" replacement aspirin 325 mg p.o. daily. 03/18/2018 she complains of chest pain during the ER stay. So further cardiac enzymes are negative he chest pain-free today. 03/2018 at the time of admission patient, her chest pains so far cardiac enzymes are negative. - Time Time Spent with patient: 15-24 minutes Medications reviewed and adjusted accordingly: Yes Anticipated discharge: Other - Patient signing AMA.
[2018-03-19] MEDS ORDERED: FAMOTIDINE 20 MG TABLET PO SCH (10:00)
[2018-03-19] MEDS ORDERED: PAROXETINE HCL 20 MG TABLET PO SCH (10:00)
[2018-03-19] MEDS ORDERED: METHYLPREDNISOLONE INJ 125 MG/2 ML SDV IV SCH (14:00)
--- NOTE | 2018-03-19 14:33 | PDOC DISCHARGE SUMMARY ---
General - Admit/Disc Date/PCP Admission Date/Primary Care Provider: 03/17/18 17:42 Discharge Date: 03/19/18 - Signed AMA - Discharge Diagnosis (1) COPD exacerbation Is this a current diagnosis for this admission?: Yes Summary: 03/17/2018 patient was placed on BiPAP with inspiratory pressure of 16 expiratory pressure of 6 respiratory rate of 8 and FiO2 of 60%. He was started on IV Solu-Medrol 125 mg every 6 hours, Xopenex nebulizations every 4 as needed , ipratropium ,nebulizations every 4 as needed, and was also started on IV antibiotic therapy ceftriaxone 1 gram iv, Levafloxacillin 5 mg IV daily. Order for incentive spirometry was placed. Cultures and sputum cultures were requested. The ABG was done on BiPAP. PH is 7.34, PCO2 44 PO2 is 56 oxygen saturation is 88%. Due to the ABGs on as needed basis. 03/18/2018 patient is feeling much better today. Is complaining of less shortness of breath and less wheezing. He was on BiPAP initially with respiratory rate of 16 and expiratory rate of 6 respiratory rate of 8 and FiO2 of 60% he is off the BiPAP right now on examination advised him to use the BiPAP as needed on examination chest bilateral entry was much improved still extensive wheezing is present he is tachycardic. Also no mild shortness of breath. ABG was done this morning. ABG today pH is 7.35/PCO2 47/PO2 72/bicarb is 25. We will continue IV antibiotic therapy and planning to cut down IV Solu- Medrol to every 12 hours. He is getting as needed nebulizations. 03/19/2018 patient says he is feeling much better expressing desire to go home after long discussion he talked his and agreed to stay in the hospital. Is off the BiPAP since last night. His pulse ox today on room air is 95%. Patient is currently on IV Rocephin, IV Levaquin, IV Solu-Medrol 125 mg every 12 hours. He is getting nebulizations every 4 as needed. Decreased Solu- Medrol to 60 mg IV every 8 hours. Team for the sputum cultures. Blood cultures are negative. She will call the nurses station and told as he is leaving AGAINST MEDICAL ADVICE. (3) S/P CABG (coronary artery bypass graft) Is this a current diagnosis for this admission?: Yes Summary: 03/17/2018 patient history of coronary artery disease status post triple vessel bypass 2011 followed by STEMI in 2014. Patient is complaining of chest pain in the emergency room cardiac enzymes every 6 were requested. Initial troponin is less than 0.012. He was on Plavix 75 mg p.o. daily, metoprolol 25 mg p.o. daily , lisinopril. 5 mg p.o. daily. and we are planning to resume those medications. He was started on Lovenox 40 mg subcu daily. 03/18/2018 she has history of coronary artery disease status post triple bypass in 2011, STEMI in 2014. In the emergency room he complains of left-sided chest pains. EKGs and cardiac enzymes are negative so far. Presently is on Lovenox 40 mg subcu daily for DVT prophylaxis, is on Plavix 75 mg daily, metoprolol 25 mg p.o. daily, he is also on zestril 5 mg p.o. daily. We will continue the current management. 03/19/2018 patient denies any chest pains during the hospital stay initially complaints of chest pain in the ER cardiac enzymes and troponins came back negative EKGs came back negative. He is on DVT prophylaxis with Lovenox 40 mg subcu daily, and Plavix 75 mg p.o. daily, metoprolol 25 mg p.o. daily. He is also on aspirin 325 mg p.o. daily. Patient signed AMA went home today. (4) Stroke Is this a current diagnosis for this admission?: Yes Summary: 03/17/2018 patient is given the history of stroke in 1999. No neurological deficits on examination. Patient alert and awake communicating well. 03/18/2018 patient is alert awake communicating well on examination no focal neurological deficits. 03/19/2018 patient is given the history of stroke in 1999. Neuro examination is stable. No complications during this hospital stay. (5) Smoker Is this a current diagnosis for this admission?: Yes (6) Diabetes 1.5, managed as type 2 Is this a current diagnosis for this admission?: Yes Summary: 03/17/2018 patient given the history of diabetes type 2 he is on metformin 500 mg p.o. twice daily at home he thinks his hemoglobin A1c was around 7. Going to stop his metformin held during the hospital stay. 03/18/2018 patient has history of type 2 diabetes mellitus on metformin 500 mg p.o. twice daily. Hemoglobin A1c was 9.3. IV Solu-Medrol 125 mg every 8 hours. Blood sugar is 387. He is on sliding scale with regular insulin. He is to IV Solu-Medrol to 125 every 12 hours. Metformin is on hold. We will continue the present management. 03/19/2018 patient latest blood sugar is 290 he is on IV Solu-Medrol 125 mg every 12 hours. Blood sugars are high because of Solu-Medrol. Explained to the patient to stay because of the high blood sugars but he is to leave AGAINST MEDICAL ADVICE. (7) Bipolar 1 disorder Is this a current diagnosis for this admission?: Yes Summary: 03/17/2018Patient has history of bipolar disorder. Is taking Lamictal unknown dose, Klonopin 1 mg p.o. 3 times daily. To restart his home medications. 03/18/2018 patient has history of bipolar disorder on Lamictal 200 mg p.o. twice daily, Klonopin 1 mg p.o. 3 times daily I am going to restart his Lamictal. 03/19/2018 has history of bipolar disorder on Klonopin and Lamictal. No complications during the hospital stay. (8) Chest pain Is this a current diagnosis for this admission?: Yes - Additional Information Discharge Diet: Diabetic Home Medications: Clopidogrel Bisulfate [Plavix 75 mg Tablet] 75 mg PO DAILY 03/17/18 Fentanyl [Duragesic 50 Mcg/Hr Transdermal Patch] 1 patch TD Q3D 03/17/18 Hydrocodone/Chlorphen P-Stirex [Tussionex Pennkinetic Susp] 5 ml PO BID Lamotrigine [Lamictal] 200 mg PO BID 03/17/18 Levofloxacin [Levaquin 500 mg Tablet] 500 mg PO [id number] 03/17/18 Lisinopril [Zestril] 5 mg PO DAILY 03/17/18 Metformin HCl [Glucophage 500 mg Tablet] 500 mg PO BID 03/17/18 Metoprolol Tartrate [Lopressor 25 mg Tablet] 25 mg PO DAILY 03/17/18 Oxycodone HCl/Acetaminophen [Percocet 7.5-325 mg Tablet] 1 tab PO Q6 03/17/18 Paroxetine HCl [Paxil 20 mg Tablet] 20 mg PO DAILY 03/17/18 Prednisone [Deltasone 20 mg Tablet] 20 mg PO [id number] 03/17/18 History of Present Illness History of Present Illness: JOSE G TURPIN II is a 47 year old male With past medical history of COPD ,CABG WITH TRIPLE BYPASSin 2011 post STEMI in 2014, diabetes, hypertension, stroke in 1999, history of bipolar disorder, seizure disorder, osteoarthritis, smoker, came to the emergency room with complaints of symptoms of bronchitis for the last several days like cough with yellowish sputum, runny nose, wheezing, fever in association with chills, nausea vomiting diarrhea, and he said he went to see the primary care physician yesterday and was started on amoxicillin if the symptoms not improve he was advised to come to the emergency room. As per the patient and the family symptoms are even gotten worse from last night so they decided to come to the emergency room today. Patient try to use the nebulizer at home without any much improvement. Patient is never been admitted with these symptoms before. Patient denies any headaches falls or dizzy spells. Denies any skin rashes. The emergency room patient was placed on BiPAP blood cultures were done and consult for admission was requested. Physical Exam Vital Signs: Temp Pulse Resp BP Pulse Ox 97.8 F 57 L 16 130/75 H 95 03/19/18 08:57 03/19/18 08:57 03/19/18 08:57 03/19/18 08:57 03/19/18 08:57 Intake & Output 03/18/18 03/19/18 03/20/18 06:59 06:59 06:59 Intake Total 300 4630 Output Total 350 1751 Balance -50 2879 Weight 103.6 kg 109.2 kg General appearance: PRESENT: no acute distress Head exam: PRESENT: atraumatic Eye exam: PRESENT: PERRLA Neck exam: ABSENT: carotid bruit, JVD, lymphadenopathy, thyromegaly Respiratory exam: PRESENT: accessory muscle use, clear to auscultation kira, rhonchi, wheezes. ABSENT: rales Cardiovascular exam: PRESENT: RRR. ABSENT: diastolic murmur, rubs, systolic murmur GI/Abdominal exam: PRESENT: normal bowel sounds, soft. ABSENT: ascites, distended, guarding, mass, organolmegaly, rebound, tenderness Rectal exam: PRESENT: deferred Neurological exam: PRESENT: alert, awake, oriented to person, oriented to place , oriented to time, oriented to situation, CN II-XII grossly intact. ABSENT: altered, motor sensory deficit Results Laboratory Results: 03/19/18 04:27 03/19/18 04:27 03/19/18 03/19/18 04:27 04:27 WBC 21.2 H RBC 4.74 Hgb 15.0 Hct 43.8 MCV 93 MCH 31.7 MCHC 34.2 RDW 13.8 Plt Count 151 Seg Neutrophils % Not Reportable Lymphocytes % Not Reportable Monocytes % Not Reportable Eosinophils % Not Reportable Basophils % Not Reportable Absolute Neutrophils Not Reportable Absolute Lymphocytes Not Reportable Absolute Monocytes Not Reportable Absolute Eosinophils Not Reportable Absolute Basophils Not Reportable Sodium 140.4 Potassium 4.2 D Chloride 101 Carbon Dioxide 26 Anion Gap 13 BUN 23 H Creatinine 0.76 Est GFR ( Amer) > 60 Est GFR (Non-Af Amer) > 60 Glucose 309 H Calcium 9.0 Magnesium 2.5 H Total Bilirubin 0.5 AST 34 ALT 36 Alkaline Phosphatase 118 Total Protein 5.9 L Albumin 3.4 L 03/17/18 03/17/18 03/18/18 19:45 19:45 01:52 Creatine Kinase 165 190 H CK-MB (CK-2) 0.29 Troponin I < 0.012 03/18/18 03/18/18 03/18/18 01:52 07:04 07:04 Creatine Kinase 333 H CK-MB (CK-2) 0.36 0.55 Troponin I < 0.012 < 0.012 Impressions: Chest X-Ray 03/17/18 00:00 IMPRESSION: NO ACUTE RADIOGRAPHIC FINDING IN THE CHEST. Qualifiers - * PATIENT BEING DISCHARGED WITH ANY OF THE FOLLOWING DIAGNOSIS: No VTE patient discharged on overlapping Therapy?: Yes
== END 2018-03-19 10:36 | disposition left against medical advice (07) | DRG 192 ==
LOC: ER 09:35 → EH 17:42 → 3N 20:05
PROVIDERS: ADMIT Emergency Medicine; ATTEND Emergency Medicine
PROC: 5A09457 Assistance with Respiratory Ventilation, 24-96 Consecutive Hours, Continuous Positive Airway Pressure (ICD-10-PCS; principal; 2018-03-17)
DX: J44.1 Chronic obstructive pulmonary disease with (acute) exacerbation (principal); I25.10 Atherosclerotic heart disease of native coronary artery without angina pectoris; Z95.5 Presence of coronary angioplasty implant and graft; I25.2 Old myocardial infarction; Z79.02 Long term (current) use of antithrombotics/antiplatelets; E11.9 Type 2 diabetes mellitus without complications; T38.0X5A Adverse effect of glucocorticoids and synthetic analogues, initial encounter; Y92.231 Patient bathroom in hospital as the place of occurrence of the external cause; E11.65 Type 2 diabetes mellitus with hyperglycemia; F31.9 Bipolar disorder, unspecified; Z79.899 Other long term (current) drug therapy; I10 Essential (primary) hypertension; G40.909 Epilepsy, unspecified, not intractable, without status epilepticus; M19.90 Unspecified osteoarthritis, unspecified site; Z86.73 Personal history of transient ischemic attack (TIA), and cerebral infarction without residual deficits; K21.9 Gastro-esophageal reflux disease without esophagitis; Z79.84 Long term (current) use of oral hypoglycemic drugs; Z90.49 Acquired absence of other specified parts of digestive tract; Z82.49 Family history of ischemic heart disease and other diseases of the circulatory system; Z83.3 Family history of diabetes mellitus; F17.210 Nicotine dependence, cigarettes, uncomplicated; Z88.6 Allergy status to analgesic agent
CPT/HCPCS: 36415; 36600; 71045; 80053; 82550; 82553; 82803; 82962; 83036; 83735; 83880; 84443; 84484; 85025; 87040; 87070; 87205; 93005; 93010; 94640; 94660; 94799; 96361; 96365; 96372; 96375; 99291; 99292; J0696; J1040; J1170; J1630; J1650; J1815; J1956; J2930; J3010; J3475; J3490; J7030; J7614; J7620; S0164

== ENCOUNTER 2018-03-21 09:48 | Observation (INO) | payer MEDICAID, OTHER ==
[2018-03-21] MEDS ORDERED: IPRATROPIUM/ALBUTEROL 0.5-2.5 MG/3 ML AMPUL NEB ONE ×3 (10:22→14:38)
[2018-03-21] MEDS ORDERED: METHYLPREDNISOLONE INJ 125 MG/2 ML SDV ONE (10:23)
--- NOTE | 2018-03-21 10:32 | ER Document Report ---
ED General - General Chief Complaint: Respiratory Distress Stated Complaint: DIFFICULTY BREATHING Time Seen by Provider: 03/21/18 10:16 Mode of Arrival: Ambulatory Information source: Patient Notes: 47-year-old male presents emergency department with complaints of difficulty breathing. Patient left hospital AGAINST MEDICAL ADVICE 2 days ago. He states that he was admitted for COPD exacerbation and pneumonia. He was on solumedrol, xopenex nebs, ipratropium, ceftriazone, and levafloxacin. Patient left without any medications. Patient says that he has been getting progressively worse over the last 2 days. Not on home O2. TRAVEL OUTSIDE OF THE [place] IN LAST 30 DAYS: No - HPI Onset: Last week Onset/Duration: Gradual Quality of pain: No pain Severity: Moderate Associated symptoms: None Exacerbated by: Denies Relieved by: Denies Similar symptoms previously: Yes Recently seen / treated by doctor: Yes - Related Data Allergies/Adverse Reactions: morphine [Morphine] Allergy (Severe, Verified 03/21/18 09:49) phycosis Past Medical History - General Information source: Patient - Social History Smoking Status: Current Some Day Smoker Family History: CAD - Past Medical History Cardiac Medical History: Reports: Hx Coronary Artery Disease, Hx Heart Attack - 2011, Hx Hypercholesterolemia, Hx Hypertension Pulmonary Medical History: Reports: Hx Bronchitis, Hx Pneumonia Denies: Hx Tuberculosis Neurological Medical History: Reports: Hx Cerebrovascular Accident, Hx Migraine , Hx Seizures Endocrine Medical History: Reports: Hx Diabetes Mellitus Type 1, Hx Diabetes Mellitus Type 2 Renal/ Medical History: Denies: Hx Peritoneal Dialysis GI Medical History: Reports: Hx Gastroesophageal Reflux Disease Musculoskeletal Medical History: Reports Hx Arthritis Psychiatric Medical History: Reports: Hx Bipolar Disorder, Hx Depression Past Surgical History: Reports: Hx Appendectomy, Hx Cardiac Catheterization - stents 2014, Hx Cardiac Surgery - CABGx3, stents, Hx Coronary Artery Bypass Graft - Triple Bypass June 2011, Hx Open Heart Surgery - CABG 2011, Hx Orthopedic Surgery - Right knee, right shoulder.. Denies: Hx Pacemaker - Immunizations Hx Diphtheria, Pertussis, Tetanus Vaccination: Yes Hx Pneumococcal Vaccination: 04/18/09 Review of Systems - Review of Systems Constitutional: No symptoms reported EENT: No symptoms reported Cardiovascular: No symptoms reported Respiratory: Cough, Wheezing Gastrointestinal: No symptoms reported Genitourinary: No symptoms reported Male Genitourinary: No symptoms reported Musculoskeletal: No symptoms reported Hematologic/Lymphatic: No symptoms reported Neurological/Psychological: No symptoms reported -: Yes All other systems reviewed and negative Physical Exam - Vital signs Vitals: Pulse BP 61 160/91 H 03/21/18 09:59 03/21/18 09:59 - Notes Notes: PHYSICAL EXAMINATION: GENERAL: Increased work of breathing. HEAD: Atraumatic, normocephalic. EYES: Pupils equal round and reactive to light, extraocular movements intact, sclera anicteric, conjunctiva are normal. ENT: Nares patent, oropharynx clear without exudates. Moist mucous membranes. NECK: Normal range of motion, supple without lymphadenopathy LUNGS: Diffuse wheezing. HEART: Regular rate and rhythm without murmurs ABDOMEN: Soft, nontender, nondistended abdomen. No guarding, no rebound. No masses appreciated. Musculoskeletal: Normal range of motion, no pitting or edema. No cyanosis. NEUROLOGICAL: Cranial nerves grossly intact. Normal speech, normal gait. Normal sensory, motor exams PSYCH: Normal mood, normal affect. SKIN: Warm, Dry, normal turgor, no rashes or lesions noted. Course - Re-evaluation Re-evalutation: 03/21/18 12:44 Patient placed on Bipap. Given duoneb treatment and solumedrol. Feeling better. Now complains of chest pain. Aching sensation in the L chest. Troponin is indeterminate. EKG was done. No ST segment elevation appreciated. Similar to EKG done on 03/17/18. EKG: Ventricular rate 61, NC interval 172, QRS duration 96, QTc 399, sinus rhythm. No ST segment elevation. Will admit patient to hospitalist for COPD exacerbation and chest pain. 03/21/18 12:47 - Vital Signs Vital signs: Temp Pulse Resp BP Pulse Ox 97.8 F 89 20 131/82 H 99 03/21/18 11:19 03/21/18 11:16 03/21/18 11:46 03/21/18 11:46 03/21/18 11:46 - Laboratory Result Diagrams: 03/21/18 11:11 03/21/18 11:11 Laboratory results interpreted by me: 03/21/18 03/21/18 03/21/18 11:03 11:11 11:11 WBC 16.9 H Band Neutrophils % 2 L Abs Neuts (Manual) 12.5 H ABG pH 7.53 H ABG pO2 167.8 H ABG HCO3 28.9 H ABG Total CO2 30.0 H ABG O2 Saturation 99.3 H Chloride 97 L Glucose 310 H ALT 75 H Alkaline Phosphatase 145 H Discharge - Discharge Clinical Impression: COPD exacerbation, Chest pain Condition: Good Disposition: ADMITTED OBSERVATION Admitting Provider: Hospitalist Unit Admitted: Telemetry Referrals: BETSY OVIEDO PA-C [Primary Care Provider] - Follow up as needed
--- NOTE | 2018-03-21 11:21 | EKG REPORT ---
SEVERITY:- OTHERWISE NORMAL ECG - SINUS RHYTHM LOW VOLTAGE IN FRONTAL LEADS : Confirmed by: Favian Mares 21-Mar-2018 11:20:13
[2018-03-21 11:30] LABS: HEMATOCRIT 48.5 % (37.9-51.0); MEAN CORPUSCULAR HEMOGLOBIN 32.1 pg (27.0-33.4); MEAN CORPUSCULAR VOLUME 92 fl (80-97); PLATELET COUNT 165 10^3/uL (150-450); RED CELL DISTRIBUTION WIDTH 13.7 % (11.5-14.0); WHITE BLOOD COUNT 16.9 10^3/uL (4.0-10.5)
[2018-03-21 11:46] LABS: ALANINE AMINOTRANSFERASE 75 U/L (21-72); ALBUMIN 3.8 g/dL (3.5-5.0); ALKALINE PHOSPHATASE 145 U/L (38-126); ANION GAP 14 (5-19); ASPARTATE AMINO TRANSFERASE 49 U/L (17-59); BILIRUBIN,DIRECT 0.2 mg/dL (0.0-0.4); BILIRUBIN,TOTAL 0.6 mg/dL (0.2-1.3); BLOOD UREA NITROGEN 19 mg/dL (7-20); CALCIUM 9.7 mg/dL (8.4-10.2); CARBON DIOXIDE 27 mmol/L (22-30); CHLORIDE 97 mmol/L (98-107); GLUCOSE 310 mg/dL (75-110); POTASSIUM 4.2 mmol/L (3.6-5.0); SODIUM 138.4 mmol/L (137-145); TOTAL PROTEIN 6.4 g/dL (6.3-8.2)
--- NOTE | 2018-03-21 11:51 | RADIOLOGY REPORT (SQ) ---
EXAM DESCRIPTION: CHEST SINGLE VIEW COMPLETED DATE/TIME: 03/21/2018 10:49 am REASON FOR STUDY: resp COMPARISON: Chest films 03/17/2018, 11/16/2017, 06/11/2017 CT chest 11/16/2017 EXAM PARAMETERS: NUMBER OF VIEWS: One view. TECHNIQUE: Single frontal radiographic view of the chest acquired. RADIATION DOSE: NA LIMITATIONS: None. FINDINGS: LUNGS AND PLEURA: No opacities, masses or pneumothorax. No pleural effusion. MEDIASTINUM AND HILAR STRUCTURES: No masses. Contour normal. HEART AND VASCULAR STRUCTURES: Mild stable cardiomegaly. Old sternotomy for CABG. BONES: No acute findings. HARDWARE: None in the chest. OTHER: No other significant finding. IMPRESSION: Mild cardiomegaly and old CABG TECHNICAL DOCUMENTATION: JOB ID: [id number] [employer]- All Rights Reserved Reading location - IP/workstation name: [email or web address]
[2018-03-21 11:54] LABS: ABSOLUTE LYMPHOCYTES# (MANUAL) 3.7 10^3/uL (0.5-4.7); ABSOLUTE MONOCYTES # (MANUAL) 0.7 10^3/uL (0.1-1.4); ABSOLUTE NEUTROPHILS# (MANUAL) 12.5 10^3/uL (1.7-8.2); BAND NEUTROPHILS % (MANUAL) 2 % (3-5); BASOPHILS % (MANUAL) 0 % (0-2); EOSINOPHILS % (MANUAL) 0 % (0-6); LYMPHOCYTES % (MANUAL) 21 % (13-45); MONOCYTES % (MANUAL) 4 % (3-13); PLATELET COMMENT ADEQUATE; RBC MORPHOLOGY COMMENT NORMO-CYTIC/CHROMIC; SEGMENTED NEUTROPHILS % (MAN) 72 % (42-78); TOTAL CELLS COUNTED 100
[2018-03-21 12:05] LABS: ARTERIAL BLOOD BASE EXCESS 6.3 mmol/L; ARTERIAL BLOOD FIO2 40%; ARTERIAL BLOOD H2CO3 1.07 mmol/L (1.05-1.35); ARTERIAL BLOOD HCO3 28.9 mmol/L (20-24); ARTERIAL BLOOD O2 SATURATION 99.3 % (94-98); ARTERIAL BLOOD PCO2 35.4 mmHg (35-45); ARTERIAL BLOOD PH 7.53 (7.35-7.45); ARTERIAL BLOOD PO2 167.8 mmHg (80-100)
[2018-03-21] MEDS ORDERED: METHYLPREDNISOLONE INJ 125 MG/2 ML SDV IV ONE (12:21)
[2018-03-21] MEDS ORDERED: FENTANYL CITRATE INJ/PF 100 MCG/2 ML AMPUL IV ONE (12:41)
[2018-03-21] MEDS ORDERED: MAG HYDROX/AL HYDROX/SIMETH SUSP 30 ML UDCUP PO PRN (13:05)
[2018-03-21] MEDS ORDERED: ACETAMINOPHEN 325 MG TABLET PO PRN (13:05)
[2018-03-21] MEDS ORDERED: ONDANSETRON HCL INJ/PF 4 MG/2 ML SDV IV PRN (13:05)
[2018-03-21] MEDS ORDERED: ALBUTEROL SULFATE 0.083% NEB 2.5 MG/3 ML AMPUL NEB PRN (13:05)
[2018-03-21] MEDS ORDERED: MAGNESIUM HYDROXIDE SUSP 30 ML UDCUP PO PRN (13:05)
[2018-03-21] MEDS ORDERED: KETOROLAC TROMETHAMINE INJ/PF 30 MG/1 ML SDV IV PRN ×2 (13:52→13:57)
[2018-03-21] MEDS ORDERED: NITROGLYCERIN 0.4 MG/TAB 25 TAB/BOTTLE SL PRN (13:52)
[2018-03-21] MEDS ORDERED: OXYCODONE HCL IR 5 MG TABLET PO PRN ×2 (13:54→15:50)
[2018-03-21] MEDS ORDERED: CLONAZEPAM 1 MG TABLET PO PRN ×2 (13:55→18:45)
[2018-03-21] MEDS ORDERED: GLUCAGON,HUMAN RECOMB 1 MG INJ IM PRN (13:56)
[2018-03-21] MEDS ORDERED: DEXTROSE 50%-WATER 25 GM/50 ML DISP.SYRIN IV PRN ×2 (13:56)
[2018-03-21] MEDS ORDERED: DEXTROSE 40% GEL 15 GM TUBE PO PRN ×2 (13:56)
[2018-03-21] MEDS ORDERED: HEPARIN SOD (PORCINE) 5,000 UNIT/ML 1 ML SYRINGE SUBCUT SCH (14:00)
[2018-03-21] MEDS ORDERED: IPRATROPIUM/ALBUTEROL 0.5-2.5 MG/3 ML AMPUL NEB SCH (14:00)
[2018-03-21] MEDS ORDERED: FENTANYL 50 MCG/HR PATCH.TD72 TD SCH (14:00)
[2018-03-21] MEDS ORDERED: METHYLPREDNISOLONE INJ 125 MG/2 ML SDV IM ONE (14:40)
[2018-03-21] MEDS ORDERED: NORMAL SALINE 1000 ML 1,000 ML IV ONE (15:39)
[2018-03-21] MEDS ORDERED: NORMAL SALINE 1000 ML 1,000 ML IV PRN (15:39)
[2018-03-21] MEDS ORDERED: (PENDING PHARMACY ID) (Oxycodone Hcl/Acetaminophen [Percocet 7.5-325 Mg Tablet] 1 TAB) PO PRN (15:43)
[2018-03-21] MEDS ORDERED: INSULIN LISPRO 100 UNIT/ML 3 ML VIAL SUBCUT ONE ×2 (16:30→18:17)
[2018-03-21] MEDS ORDERED: HALOPERIDOL LACTATE INJ 5 MG/1 ML VIAL IV ONE (16:30)
[2018-03-21 17:42] LABS: ALANINE AMINOTRANSFERASE 65 U/L (21-72); ALBUMIN 3.4 g/dL (3.5-5.0); ALKALINE PHOSPHATASE 132 U/L (38-126); ANION GAP 13 (5-19); ASPARTATE AMINO TRANSFERASE 33 U/L (17-59); BILIRUBIN,DIRECT 0.2 mg/dL (0.0-0.4); BILIRUBIN,TOTAL 0.6 mg/dL (0.2-1.3); BLOOD UREA NITROGEN 21 mg/dL (7-20); CARBON DIOXIDE 29 mmol/L (22-30); CHLORIDE 95 mmol/L (98-107); POTASSIUM 4.5 mmol/L (3.6-5.0); SODIUM 136.9 mmol/L (137-145); TOTAL PROTEIN 5.8 g/dL (6.3-8.2)
[2018-03-21 17:59] LABS: GLUCOSE 480 mg/dL (75-110)
--- NOTE | 2018-03-21 18:52 | PDOC H&P ---
History of Present Illness Admission Date/PCP: 03/21/18 12:46 BETSY OVIEDO PA-C Patient complains of: Chest pain, shortness of breath History of Present Illness: JOSE G BLACK II is a 47 year old male with a past medical history of COPD, STEMI with stent x1, CABG in 2014, CVA (without residual deficits in 1999), DM, bipolar disorder, and tobacco dependence with continuous use who presented to the emergency department today with progressively worsening dyspnea while at rest since leaving AMA 2 days ago when he was admitted for COPD exacerbation. Upon my arrival to the exam room, the patient's chief complaint was actually chest discomfort which he states is different than his typical chest pain. The patient reports chronic chest pain related to his CABG; reporting that he was evaluated for a revision of his sternotomy but was told that this was cosmetic. His chest discomfort now is "heart pain," described as sharp, intermittent, radiating down his arm. He does admit that the pain worsens with deep breath and cough but denies worsening with ambulation. He denies alleviating factors. The pain is associated with dyspnea and anxiety. The patient is clearly hyperventilating and requires coaching by both nursing and respiratory therapy to slow his respiratory rate with noted improved vital signs and comfort. Evaluation in the emergency department reveals Leukocytosis (WBC 16.9), normal d -dimer, ABG demonstrating respiratory alkalosis (H7.53, PCO2 35.4, PO2 167, HCO3 28.9 while on BiPAP with an FiO2 of 40), and a rather unremarkable chemistry. Initial troponin is indeterminately elevated to 0.047. EKG demonstrates a normal sinus rhythm without ST segment changes. Chest x-ray reveals mild cardiomegaly but no acute cardiopulmonary processes. He is referred to the hospitalist service for admission and management of the above stated complaints. Past Medical History Cardiac Medical History: Reports: Coronary Artery Disease, Myocardial Infarction - CABG, stent x1, Hyperlipidema, Hypertension Pulmonary Medical History: Reports: Chronic Obstructive Pulmonary Disease (COPD) , Pneumonia Denies: Tuberculosis EENT Medical History: Reports: None Neurological Medical History: Reports: Migraine, Seizures Endocrine Medical History: Reports: Diabetes Mellitus Type 2 Renal/ Medical History: Reports: None Malignancy Medical History: Reports: None GI Medical History: Reports: Gastroesophageal Reflux Disease Musculoskeltal Medical History: Reports: Arthritis Psychiatric Medical History: Reports: Bipolar Disorder, Depression, General Anxiety Disorder Hematology: Reports: None Infectious Medical History: Reports: None Past Surgical History Past Surgical History: Reports: Appendectomy, Cardiac Catheterization - stents 2014, Coronary Artery Bypass Graft - Triple Bypass June 2011, Orthopedic Surgery - Right knee, right shoulder. Denies: Pacemaker Social History Information Source: Patient Lives with: Family Smoking Status: Current Every Day Smoker Cigarettes Packs Per Day: 0.5 Frequency of Alcohol Use: Rare Hx Recreational Drug Use: No Drugs: None Hx Prescription Drug Abuse: No - Advance Directive Resuscitation Status: Do Not Resuscitate Surrogate healthcare decision maker:: The patient's , Saundra Black Family History Family History: CAD Parental Family History Reviewed: Yes Children Family History Reviewed: Yes Sibling(s) Family History Reviewed.: Yes Medication/Allergy Home Medications: Fentanyl [Duragesic 50 Mcg/Hr Transdermal Patch] 1 patch TD Q3D 03/17/18 Oxycodone HCl/Acetaminophen [Percocet 7.5-325 mg Tablet] 1 tab PO Q6HP PRN 03/17 Paroxetine HCl [Paxil 20 mg Tablet] 20 mg PO DAILY 03/17/18 Clonazepam [Klonopin 1 mg Tablet] 1 mg PO Q8 03/21/18 Allergies/Adverse Reactions: morphine [Morphine] Allergy (Severe, Verified 03/21/18 09:49) phycosis Review of Systems Constitutional: ABSENT: chills, fever(s), headache(s), weight gain, weight loss Eyes: ABSENT: visual disturbances Ears: ABSENT: hearing changes Cardiovascular: PRESENT: chest pain. ABSENT: dyspnea on exertion, edema, orthropnea, palpitations Respiratory: PRESENT: dyspnea, sputum. ABSENT: cough, hemoptysis Gastrointestinal: ABSENT: abdominal pain, constipation, diarrhea, hematemesis, hematochezia, nausea, vomiting Genitourinary: ABSENT: dysuria, hematuria Musculoskeletal: ABSENT: joint swelling Integumentary: ABSENT: rash, wounds Neurological: ABSENT: abnormal gait, abnormal speech, confusion, dizziness, focal weakness, syncope Psychiatric: PRESENT: anxiety. ABSENT: depression, homidical ideation, suicidal ideation Endocrine: ABSENT: cold intolerance, heat intolerance, polydipsia, polyuria Hematologic/Lymphatic: ABSENT: easy bleeding, easy bruising Physical Exam Vital Signs: Temp Pulse Resp BP Pulse Ox 98.1 F 89 13 134/81 H 94 03/21/18 17:01 03/21/18 11:16 03/21/18 17:10 03/21/18 17:10 03/21/18 17:10 General appearance: PRESENT: no acute distress, obese, well-developed, well- nourished Head exam: PRESENT: atraumatic, normocephalic Eye exam: PRESENT: conjunctiva pink, EOMI, PERRLA. ABSENT: scleral icterus Ear exam: PRESENT: normal external ear exam Mouth exam: PRESENT: moist, tongue midline Neck exam: ABSENT: carotid bruit, JVD, lymphadenopathy, thyromegaly Respiratory exam: PRESENT: decreased breath sounds - Bibasilar, prolonged expiratory phas, symmetrical, tachypnea - Hyperventilating; improved after removing BiPAP and with coaching, unlabored. ABSENT: rales, rhonchi, wheezes Cardiovascular exam: PRESENT: RRR, +S1, +S2. ABSENT: diastolic murmur, rubs, systolic murmur Pulses: PRESENT: normal dorsalis pedis pul Vascular exam: PRESENT: normal capillary refill GI/Abdominal exam: PRESENT: normal bowel sounds, soft. ABSENT: distended, guarding, mass, organolmegaly, rebound, tenderness Rectal exam: PRESENT: deferred Extremities exam: PRESENT: full ROM. ABSENT: calf tenderness, clubbing, pedal edema Neurological exam: PRESENT: alert, awake, oriented to person, oriented to place , oriented to time, oriented to situation, CN II-XII grossly intact. ABSENT: motor sensory deficit Psychiatric exam: PRESENT: anxious - Tearful, appropriate affect. ABSENT: homicidal ideation, suicidal ideation Skin exam: PRESENT: dry, intact, warm. ABSENT: cyanosis, rash Results Laboratory Results: 03/21/18 17:08 03/21/18 17:08 Sodium 136.9 L Potassium 4.5 Chloride 95 L Carbon Dioxide 29 Anion Gap 13 BUN 21 H Creatinine 0.96 Est GFR ( Amer) > 60 Est GFR (Non-Af Amer) > 60 Glucose 480 H* Calcium 9.0 Total Bilirubin 0.6 AST 33 ALT 65 Alkaline Phosphatase 132 H Total Protein 5.8 L Albumin 3.4 L 03/21/18 17:08 Troponin I 0.050 Impressions: Chest X-Ray 03/21/18 00:00 IMPRESSION: Mild cardiomegaly and old CABG Assessment & Plan - Diagnosis (1) Chest pain Qualifiers: Chest pain type: unspecified Qualified Code(s): R07.9 - Chest pain, unspecified Is this a current diagnosis for this admission?: Yes Plan: The patient reports acute chest pain, unlike his chronic chest pain related to his CABG. The chest pain he is experiencing today is described as sharp in nature and radiating to his arm. It is, however, reproducible with chest palpation, deep breathing and coughing. Initial troponin is indeterminately elevated at 0.047. Repeat minimally increased to 0.050. EKG demonstrated normal sinus rhythm with low voltage and no ST segment changes. A repeat EKG obtained this afternoon during an acute chest pain episode remains reassuring. Although the patient's HPI is only slightly suspicious; risk factors include obesity, age, previous STEMI, hypertension, hyperlipidemia, diabetes mellitus, and current tobacco use. Heart score 4. He is admitted to the medical floor on continuous cardiac telemetry. He is started on full dose Lovenox. We will continue to trend troponins. Daily aspirin and statin therapy. Have requested his most recent echocardiogram and stress test results; patient reports that he has had a normal stress test within the last year. Patient is followed by Dr. Armando; reports that he has been noncompliant with recommendations and has not followed up as was advised. Nitro SL for chest pain. Lipid panel with a.m labs. A1C (03/18/18) 9.3% Will discuss with cardiology tomorrow inpatient vs outpatient stress testing. (2) COPD exacerbation Is this a current diagnosis for this admission?: Yes Plan: The patient was recently admitted for COPD exacerbation and supported with IV antibiotics, IV Solu-Medrol, supplemental oxygen and BiPAP at that time. The patient went AMA approximately 2 days ago as he was feeling better. He reports that he has had continued dyspnea on exertion and a productive cough. He does continue to smoke. Chest x-ray today is benign. Leukocytosis is elevated to 16.9, however this may be related either to his recent IV steroids or as a stress response to chest pain. ABG demonstrated respiratory alkalosis and the patient was noted to be hyperventilating; his vital signs and comfort improved with removal of BiPAP and coaching. He will be provided supplemental oxygen to maintain oxygen saturations between 89-92%. As needed nebulizer treatments are available. Will start Spiriva. He received IV Solu-Medrol by the ED provider; will begin p.o. prednisone tomorrow. Mucinex twice daily. Incentive spirometer and flutter valve to bedside. (3) Diabetes Qualifiers: Diabetes mellitus type: type 2 Diabetes mellitus nursing home insulin use: without nursing home use Diabetes mellitus complication status: with hyperglycemia Qualified Code(s): E11.65 - Type 2 diabetes mellitus with hyperglycemia Is this a current diagnosis for this admission?: Yes Plan: A1C 9.3% The patient's metformin is held. He is placed on a consistent carb diet. Accu-Cheks before meals and at bedtime with Humalog for sliding scale coverage. The registered dietitian and grain elevator motor starter consulted. (4) Bipolar 1 disorder Plan: We will continue the patient's home dose Paxil and Klonopin. I do believe that the patient's anxiety is significantly contributing to his complaints; he may benefit from a mental health consultation. (5) Tobacco abuse Is this a current diagnosis for this admission?: Yes Plan: The patient endorses continued tobacco use; 1/2 pack/day. Smoking cessation is encouraged. Nicotine replacement therapies are provided. (6) History of CVA (cerebrovascular accident) Is this a current diagnosis for this admission?: No Plan: Without residual effects. (7) Opiate dependence, continuous Is this a current diagnosis for this admission?: Yes Plan: The patient reports chronic pain related to sternotomy during CABG and multiple orthopedic surgeries. The [place] substance database was reviewed; he is currently prescribed fentanyl patch 50 mcg with oxycodone 7.5 mg every 6 hours as needed breakthrough pain. His home medication regimen is continued. - Time Time Spent: 50 to 70 Minutes Medications reviewed and adjusted accordingly: Yes Anticipated discharge: Home Within: within 24 hours
--- NOTE | 2018-03-21 20:10 | EKG REPORT ---
SEVERITY:- BORDERLINE ECG - SINUS RHYTHM BORDERLINE R WAVE PROGRESSION, ANTERIOR LEADS : Confirmed by: Favian Mares 21-Mar-2018 20:09:13
[2018-03-21] MEDS: ENOXAPARIN SODIUM INJ 100 MG/1 ML DISP.SYRIN SUBCUT SCH (21:53)
[2018-03-21] MEDS: FAMOTIDINE 20 MG TABLET PO SCH (21:54)
[2018-03-21] MEDS: GUAIFENESIN 600 MG TABLET.SA PO SCH (21:54)
[2018-03-21] MEDS ORDERED: ATORVASTATIN CALCIUM 20 MG TABLET PO SCH (22:00)
[2018-03-21] MEDS: INSULIN LISPRO 100 UNIT/ML 3 ML VIAL SUBCUT PRN (22:10)
[2018-03-21] MEDS: OXYCODONE-ACETAMINOPHEN 5-325 MG TABLET PO PRN (22:10)
[2018-03-22 03:58] LABS: APPEARANCE,URINE CLEAR; BILIRUBIN,URINE NEGATIVE (NEGATIVE); COLOR,URINE YELLOW; GLUCOSE, URINE >=500 mg/dL (NEGATIVE); KETONES,URINE NEGATIVE (NEGATIVE); LEUKOCYTE ESTERASE,URINE NEGATIVE (NEGATIVE); NITRITE,URINE NEGATIVE (NEGATIVE); PROTEIN,URINE NEGATIVE (NEGATIVE); URINE SPECIFIC GRAVITY 1.024; UROBILINOGEN,URINE NEGATIVE mg/dL (<2.0)
[2018-03-22 06:19] LABS: HEMATOCRIT 44.4 % (37.9-51.0); HEMOGLOBIN 15.3 g/dL (13.5-17.0); MEAN CORPUSCULAR HEMOGLOBIN 31.8 pg (27.0-33.4); MEAN CORPUSCULAR HGB CONC 34.5 g/dL (32.0-36.0); MEAN CORPUSCULAR VOLUME 92 fl (80-97); PLATELET COUNT 147 10^3/uL (150-450); RED BLOOD COUNT 4.82 10^6/uL (4.35-5.55); RED CELL DISTRIBUTION WIDTH 13.7 % (11.5-14.0); WHITE BLOOD COUNT 20.4 10^3/uL (4.0-10.5)
[2018-03-22] MEDS: OXYCODONE-ACETAMINOPHEN 5-325 MG TABLET PO PRN ×2 (06:32→14:09)
[2018-03-22 06:39] LABS: ANION GAP 11 (5-19); BLOOD UREA NITROGEN 27 mg/dL (7-20); CALCIUM 8.8 mg/dL (8.4-10.2); CARBON DIOXIDE 27 mmol/L (22-30); CHLORIDE 98 mmol/L (98-107); CHOLESTEROL 207.42 mg/dL (0-200); GLUCOSE 231 mg/dL (75-110); POTASSIUM 4.4 mmol/L (3.6-5.0); SODIUM 136.3 mmol/L (137-145); TRIGLYCERIDES 357 mg/dL (<150)
[2018-03-22 06:49] LABS: DIRECT LDL 103 mg/dL (<100)
[2018-03-22 06:50] LABS: VLDL CHOLESTEROL 71.4 mg/dL (10-31)
[2018-03-22] MEDS: INSULIN LISPRO 100 UNIT/ML 3 ML VIAL SUBCUT PRN ×2 (09:23→12:45)
[2018-03-22] MEDS: FAMOTIDINE 20 MG TABLET PO SCH (09:31)
[2018-03-22] MEDS: GUAIFENESIN 600 MG TABLET.SA PO SCH (09:31)
[2018-03-22] MEDS: ENOXAPARIN SODIUM INJ 100 MG/1 ML DISP.SYRIN SUBCUT SCH (09:34)
[2018-03-22] MEDS ORDERED: PAROXETINE HCL 20 MG TABLET PO SCH (10:00)
[2018-03-22] MEDS ORDERED: LISINOPRIL 5 MG TABLET PO SCH (10:00)
[2018-03-22] MEDS ORDERED: METOPROLOL TARTRATE 25 MG TABLET PO SCH (10:00)
[2018-03-22] MEDS ORDERED: ASPIRIN 81 MG TABLET, CHEWABLE PO SCH (10:00)
[2018-03-22] MEDS ORDERED: NICOTINE 14 MG/24 HR PATCH.TD24 TD SCH (10:00)
[2018-03-22] MEDS ORDERED: PREDNISONE 20 MG TABLET PO SCH (10:00)
[2018-03-22] MEDS ORDERED: DOCUSATE SODIUM 100 MG CAPSULE PO SCH (10:00)
[2018-03-22 16:59] VITALS: BP 118/74
--- NOTE | 2018-03-23 20:49 | PDOC DISCHARGE SUMMARY ---
General - Admit/Disc Date/PCP Admission Date/Primary Care Provider: 03/21/18 12:46 BETSY OVIEDO PA-C Discharge Date: 03/22/18 - Discharge Diagnosis (1) Chest pain Is this a current diagnosis for this admission?: Yes Summary: The patient was admitted with complaint of acute chest pain, unlike his chronic chest pain related to his CABG. His current pain is described as sharp in nature and radiating to his arm. It is, however, reproducible with chest palpation, deep breathing and coughing. Initial troponins are improved; 0.047--> 0.050--> 0.034--> 0.019 EKG demonstrated normal sinus rhythm with low voltage and no ST segment changes. A repeat EKG obtained later during reoccurrence of chest pain remained reassuring. Although the patient's HPI was only slightly suspicious; risk factors include obesity, age, previous STEMI, hypertension, hyperlipidemia, diabetes mellitus, and current tobacco use. Heart score 4. He was admitted to the medical floor on continuous cardiac telemetry and monitored overnight. He was placed on full dose Lovenox, daily aspirin, and statin therapy. He had no further episodes of chest pain. Records from [facility] were requested; a normal echocardiogram and stress test was completed in November 2017. Option of repeated stress test this admission vs. discharge to home with close cardiac follow up was discussed. The patient expressed a desire to discharge to home and requested assistance with obtaining a new laundry room attendant (previously followed by Dr. Armando). Fortunately, Dr. Coughlin's office was able to provide the patient with an appointment next week. The patient was discharged to home with instructions to continue metoprolol, lisinopril, and daily aspirin and statin therapy. He was encouraged to follow a cardiac diet, increase daily walking, and to stop smoking. The patient was instructed to return to the emergency department immediately for any concerning symptoms. At time of discharge, the patient was in stable condition and had been chest pain free for >24 hours. (2) COPD exacerbation Is this a current diagnosis for this admission?: Yes Summary: The patient was recently admitted for COPD exacerbation and supported with IV antibiotics, IV Solu-Medrol, supplemental oxygen and BiPAP at that time. The patient went AMA approximately 2 days ago as he was feeling better. He reports that he has had continued dyspnea on exertion and a productive cough. He does continue to smoke. Chest x-ray was benign. Leukocytosis was elevated to 16.9; increased to 20k following administration of high dose IV Solu-Medrol yesterday ABG demonstrated respiratory alkalosis and the patient was noted to be hyperventilating; his vital signs and comfort improved with removal of BiPAP and coaching/guided breathing exercises. The patient was provided as needed nebulizer treatments. He was started on Spiriva and placed on prednisone. He was provided a prescription for continued prednisone x 5 days. He is encouraged to discontinue smoking and to return to the emergency department as needed for any concerning symptoms. (3) Diabetes Is this a current diagnosis for this admission?: Yes Summary: A1C 9.3% He was encouraged to follow a low carb diet and to increase daily walking. He was advised to continue his current metformin dose and was agreeable to initiating Januvia. He was provided a prescription for Januvia 25 mg daily. (4) Bipolar 1 disorder Is this a current diagnosis for this admission?: Yes Summary: We will continue the patient's home dose Paxil and Klonopin. I do believe that the patient's anxiety is significantly contributing to his chest pain. He requested additional medication assistance for management of anxiety and difficulty sleeping; he reported previous benefit with use of Trazadone. He was provided a prescription for trazadone 50 mg qHS; may increase to 100 mg nightly if still experiencing difficulty sleeping in 1 week. He is advised on the importance of following up with his mental health provider as scheduled next week and to discuss the addition of trazadone. (5) Tobacco abuse Is this a current diagnosis for this admission?: Yes Summary: Smoking cessation is encouraged; a prescription for Nicoderm was provided. (6) History of CVA (cerebrovascular accident) Is this a current diagnosis for this admission?: No (7) Opiate dependence, continuous Is this a current diagnosis for this admission?: Yes Summary: The patient home medication regiment was continued unchanged. - Additional Information Resuscitation Status: Do Not Resuscitate Discharge Diet: Cardiac, Diabetic Discharge Activity: Activity As Tolerated Prescriptions: Aspirin [Aspirin 81 mg Chewable Tablet] 81 mg PO DAILY #90 tab.chew Nicotine [Nicoderm 14 mg/24 Hr Transdermal Patch] 1 each TD DAILY #30 patch.td24 Prednisone [Deltasone 20 mg Tablet] 60 mg PO DAILY #12 tablet Sitagliptin Phosphate [Januvia 25 mg Tablet] 25 mg PO DAILY #30 tablet Trazodone HCl [Desyrel 50 mg Tablet] 50 mg PO QHS #45 tablet Home Medications: Fentanyl [Duragesic 50 Mcg/Hr Transdermal Patch] 1 patch TD Q3D 03/17/18 Oxycodone HCl/Acetaminophen [Percocet 7.5-325 mg Tablet] 1 tab PO Q6HP PRN 03/17 Paroxetine HCl [Paxil 20 mg Tablet] 20 mg PO DAILY 03/17/18 Clonazepam [Klonopin 1 mg Tablet] 1 mg PO Q8 03/21/18 Acetaminophen [Tylenol 325 mg Tablet] 650 mg PO Q4HP PRN tablet 03/22/18 Aspirin [Aspirin 81 mg Chewable Tablet] 81 mg PO DAILY #90 tab.chew 03/22/18 Lisinopril [Prinivil 5 mg Tablet] 5 mg PO DAILY tablet 03/22/18 Metoprolol Tartrate [Lopressor 25 mg Tablet] 25 mg PO DAILY tablet 03/22/18 Nicotine [Nicoderm 14 mg/24 Hr Transdermal Patch] 1 each TD DAILY #30 patch.td24 03/22/18 Prednisone [Deltasone 20 mg Tablet] 60 mg PO DAILY #12 tablet 03/22/18 Sitagliptin Phosphate [Januvia 25 mg Tablet] 25 mg PO DAILY #30 tablet 03/22/18 Trazodone HCl [Desyrel 50 mg Tablet] 50 mg PO QHS #45 tablet 03/22/18 History of Present Illness History of Present Illness: JOSE G TURPIN II is a 47 year old male with a past medical history of COPD, STEMI with stent x1, CABG in 2014, CVA (without residual deficits in 1999), DM, bipolar disorder, and tobacco dependence with continuous use who presented to the emergency department today with progressively worsening dyspnea while at rest since leaving AMA 2 days ago when he was admitted for COPD exacerbation. Upon my arrival to the exam room, the patient's chief complaint was actually chest discomfort which he states is different than his typical chest pain. The patient reports chronic chest pain related to his CABG; reporting that he was evaluated for a revision of his sternotomy but was told that this was cosmetic. His chest discomfort now is "heart pain," described as sharp, intermittent, radiating down his arm. He does admit that the pain worsens with deep breath and cough but denies worsening with ambulation. He denies alleviating factors. The pain is associated with dyspnea and anxiety. The patient is clearly hyperventilating and requires coaching by both nursing and respiratory therapy to slow his respiratory rate with noted improved vital signs and comfort. Evaluation in the emergency department reveals Leukocytosis (WBC 16.9), normal d -dimer, ABG demonstrating respiratory alkalosis (H7.53, PCO2 35.4, PO2 167, HCO3 28.9 while on BiPAP with an FiO2 of 40), and a rather unremarkable chemistry. Initial troponin is indeterminately elevated to 0.047. EKG demonstrates a normal sinus rhythm without ST segment changes. Chest x-ray reveals mild cardiomegaly but no acute cardiopulmonary processes. He is referred to the hospitalist service for admission and management of the above stated complaints. Physical Exam Vital Signs: Temp Pulse Resp BP Pulse Ox 98.2 F 70 20 118/74 92 03/22/18 16:55 03/22/18 16:55 03/22/18 16:55 03/22/18 16:55 03/22/18 16:55 Intake & Output 03/22/18 03/23/18 03/24/18 06:59 06:59 06:59 Intake Total 1780 360 Output Total 800 1230 Balance 980 -870 Weight 95.2 kg General appearance: PRESENT: no acute distress, cooperative, well-developed, well-nourished - overweight Head exam: PRESENT: atraumatic, normocephalic Eye exam: PRESENT: conjunctiva pink, EOMI, PERRLA. ABSENT: scleral icterus Ear exam: PRESENT: normal external ear exam Mouth exam: PRESENT: moist, tongue midline Neck exam: ABSENT: carotid bruit, JVD, lymphadenopathy, thyromegaly Respiratory exam: PRESENT: clear to auscultation kira. ABSENT: rales, rhonchi, wheezes Cardiovascular exam: PRESENT: RRR, +S1, +S2. ABSENT: diastolic murmur, rubs, systolic murmur Pulses: PRESENT: normal dorsalis pedis pul Vascular exam: PRESENT: normal capillary refill GI/Abdominal exam: PRESENT: normal bowel sounds, soft. ABSENT: distended, guarding, mass, organolmegaly, rebound, tenderness Rectal exam: PRESENT: deferred Extremities exam: PRESENT: full ROM. ABSENT: calf tenderness, clubbing, pedal edema Neurological exam: PRESENT: alert, awake, oriented to person, oriented to place , oriented to time, oriented to situation, CN II-XII grossly intact. ABSENT: motor sensory deficit Psychiatric exam: PRESENT: anxious, appropriate affect, normal mood. ABSENT: homicidal ideation, suicidal ideation Skin exam: PRESENT: dry, intact, warm. ABSENT: cyanosis, rash Results Laboratory Results: 03/22/18 04:55 03/22/18 04:55 03/21/18 03/21/18 03/22/18 17:08 22:51 04:55 Troponin I 0.050 0.034 0.019 Impressions: Chest X-Ray 03/21/18 00:00 IMPRESSION: Mild cardiomegaly and old CABG Qualifiers - * PATIENT BEING DISCHARGED WITH ANY OF THE FOLLOWING DIAGNOSIS: No Plan Discharge Plan: Discharge to home with self care. Follow up with PCP within 1 week. Follow up with mental health provider as scheduled next week. Keep new-patient appointment with Dr. Coughlin (cardiology) as scheduled next week. Return to the emergency department as needed for concerning symptoms.
== END 2018-03-22 17:14 | disposition home or self-care (01) ==
LOC: ER 09:48 → EH 12:46 → 4S 17:34
PROVIDERS: ADMIT Internal Medicine; ATTEND Internal Medicine
DX: R07.89 Other chest pain (principal); J44.1 Chronic obstructive pulmonary disease with (acute) exacerbation; E11.65 Type 2 diabetes mellitus with hyperglycemia; E66.9 Obesity, unspecified; I25.2 Old myocardial infarction; I10 Essential (primary) hypertension; E78.5 Hyperlipidemia, unspecified; D72.829 Elevated white blood cell count, unspecified; Z79.899 Other long term (current) drug therapy; Z95.1 Presence of aortocoronary bypass graft; E87.3 Alkalosis; R06.4 Hyperventilation; F11.20 Opioid dependence, uncomplicated; Z79.84 Long term (current) use of oral hypoglycemic drugs; F31.9 Bipolar disorder, unspecified; F41.9 Anxiety disorder, unspecified; G47.9 Sleep disorder, unspecified; I25.10 Atherosclerotic heart disease of native coronary artery without angina pectoris; Z86.73 Personal history of transient ischemic attack (TIA), and cerebral infarction without residual deficits; Z79.82 Long term (current) use of aspirin; Z66 Do not resuscitate; Z95.5 Presence of coronary angioplasty implant and graft; F17.210 Nicotine dependence, cigarettes, uncomplicated; Z90.49 Acquired absence of other specified parts of digestive tract; Z91.19 Patient's noncompliance with other medical treatment and regimen; Z68.30 Body mass index [BMI] 30.0-30.9, adult
CPT/HCPCS: 93005 ×2; 94640 ×3; 99285; 96372; 96374; 36415 ×2; 87040; 87205; 82962 ×2; 82803; 85025; 85027; 82272; 80048; 80053; 81001; 84484 ×2; 85379; 80061; 71045; 93010; 94660; G0378 ×3; J1630; J1815 ×2; J2930; J7512; J3490; J7030; J1650; J7620; 87070

== ENCOUNTER 2020-03-02 09:51 | Emergency (ER) | payer SELFPAY ==
[2020-03-02] MEDS ORDERED: ASPIRIN 81 MG TABLET, CHEWABLE PO ONE (10:16)
--- NOTE | 2020-03-02 10:16 | ER Document Report ---
ED Cardiac - General Chief Complaint: Chest Pain Stated Complaint: CHEST PAIN Time Seen by Provider: 03/02/20 10:04 Primary Care Provider: BETSY OVIEDO PA-C [Primary Care Provider] - Follow up as needed Mode of Arrival: Ambulatory Information source: Patient Notes: 49-year-old male presents to the emergency department with complaint of chest pain which began approximately 5 AM this morning. He has a past medical history of CAD. He has had 3 vessel bypass graft surgery in 2011. He has had for stents placed the most recent October 2019. This morning he took sublingual nitroglycerin x3 and aspirin 162 mg with no improvement. He is presenting to the emergency department with chest pain rated 7/10, nausea, shortness of breath and pain which radiates into the left arm. Triage EKG does not show acute ischemic findings or ST elevation. Patient is clutching his chest stating that he is having severe pain. He states that he was seen in [place] for similar episode and diagnosed with angina at that time. His enzymes were negative. He is allergic to morphine. [facility] reveals the patient was admitted in 2018 with severe chest pain, apparently he is in pain management, at that time using Duragesic patches and supplemental pain medication. He is presently in pain management requiring high doses of oxycodone. TRAVEL OUTSIDE OF THE [place] IN LAST 30 DAYS: No - Related Data Allergies/Adverse Reactions: morphine [Morphine] Allergy (Severe, Verified 03/21/18 09:49) phycosis Past Medical History - Social History Smoking Status: Current Every Day Smoker Family History: Reviewed & Not Pertinent, CAD - Past Medical History Cardiac Medical History: Reports: Hx Coronary Artery Disease, Hx Heart Attack - CABG, stent x1, Hx Hypercholesterolemia, Hx Hypertension Pulmonary Medical History: Reports: Hx Bronchitis, Hx COPD, Hx Pneumonia Denies: Hx Tuberculosis Neurological Medical History: Reports: Hx Cerebrovascular Accident, Hx Migraine, Hx Seizures Endocrine Medical History: Reports: Hx Diabetes Mellitus Type 1, Hx Diabetes Mellitus Type 2 Renal/ Medical History: Denies: Hx Peritoneal Dialysis GI Medical History: Reports: Hx Gastroesophageal Reflux Disease Musculoskeletal Medical History: Reports Hx Arthritis Psychiatric Medical History: Reports: Hx Bipolar Disorder, Hx Depression Past Surgical History: Reports: Hx Appendectomy, Hx Cardiac Catheterization - stents 2014, Hx Cardiac Surgery - CABGx3, stents, Hx Coronary Artery Bypass Graft - Triple Bypass June 2011, Hx Open Heart Surgery - CABG 2011, Hx Orthopedic Surgery - Right knee, right shoulder.. Denies: Hx Pacemaker - Immunizations Hx Diphtheria, Pertussis, Tetanus Vaccination: Yes Hx Pneumococcal Vaccination: 04/18/09 Review of Systems - Review of Systems Notes: Constitutional: Negative for fever. HENT: Negative for sore throat. Eyes: Negative for visual changes. Cardiovascular: See HPI Respiratory: + Shortness of breath Gastrointestinal: + Nausea Genitourinary: Negative for dysuria. Musculoskeletal: Negative for back pain. Skin: Negative for rash. Neurological: Negative for headaches, weakness or numbness. 10 point ROS negative except as marked above and in HPI. Physical Exam - Vital signs Vitals: Resp 03/02/20 10:06 - Notes Notes: PHYSICAL EXAMINATION: Physical Exam: General: Well-nourished well-developed 49-year-old man in moderate distress secondary to chest pain. HEENT: NC/AT, pupils equal round and reactive to light, MM moist,nares clear, oropharynx clear, airway patent Neck: supple, no adenopathy, no masses. Good range of motion Lungs: clear, no wheezing, no rales no rhonchi Chest: Midsternal surgical scar secondary to thoracotomy CVS: Regular rate and rhythm no murmur gallop or rub Abdomen: Soft, active, nontender, no masses, no hepatosplenomegaly Ext: No edema, clubbing or cyanosis. Neuro: Alert and responsive, moving all 4 extremities on command, cranial nerves intact, no focal findings Skin: Intact no open lesions, no rash Course - Re-evaluation Re-evalutation: 03/02/20 11:49 I was notified by the nurse the patient is deciding to sign out against medical advice. Apparently he is requesting more opiate medication for pain control. I have had a discussion with the patient and states that he feels that because he's in pain management, I am not taking him and his pain conditions seriously. I've explained to the patient that I have approaches medical problem as I customarily do with chest pain to try to figure out whether this is truly cardiac or if it has to do with his long-term opiate use. He was given a dose of hydromorphone along with Zofran and nitro glycerin in order to get a clear picture. His troponin comes back negative. I am unable to convince the patient to stay for further evaluation as he is adamant that he is leaving. His mother is at the bedside and the nurse was also in the room to witness his determination to leave. - Vital Signs Vital signs: Temp Pulse Resp BP Pulse Ox 97.8 F 23 H 141/94 H 97 03/02/20 11:38 03/02/20 11:37 03/02/20 11:37 03/02/20 11:37 - Laboratory Result Diagrams: 03/02/20 10:16 03/02/20 10:16 Laboratory results interpreted by me: 03/02/20 03/02/20 10:16 10:16 WBC 12.0 H Hgb 17.9 H Hct 51.4 H Glucose 199 H I have reviewed laboratory data and used this information for the treatment decisions regarding the patient. - Diagnostic Test Radiology reviewed: Image reviewed, Reports reviewed Radiology results interpreted by me: 03/02/20 11:47 Chest X-Ray 03/02/20 10:12 IMPRESSION: No evidence of acute cardiopulmonary abnormality. - EKG Interpretation by Me Rate: Normal - EKG interpreted by Dr. Khan: Normal sinus rhythm, rate 86, IL interval 176 ms QT interval 352 ms, normal axis, no acute ST or T wave abnormalities,low voltage, no ischemic findings, compared to EKG dated 03/02/2020, there are interval changes. Interpretation normal EKG,low voltage Discharge - Discharge Clinical Impression: Opiate dependence, continuous, S/P CABG x 1, Smoker Chest pain Qualifiers: Chest pain type: unspecified Qualified Code(s): R07.9 - Chest pain, unspecified Disposition: AGAINST MEDICAL ADVICE Referrals: BETSY OVIEDO PA-C [Primary Care Provider] - Follow up as needed
[2020-03-02] MEDS ORDERED: HYDROMORPHONE HCL INJ/PF 2 MG/ML AMPULE IV ONE (10:17)
[2020-03-02] MEDS ORDERED: NITROGLYCERIN 0.4 MG/TAB 25 TAB/BOTTLE SL PRN (10:18)
[2020-03-02] MEDS ORDERED: ONDANSETRON HCL INJ/PF 4 MG/2 ML SDV IV ONE (10:19)
--- NOTE | 2020-03-02 10:45 | RADIOLOGY REPORT (SQ) ---
EXAM DESCRIPTION: CHEST SINGLE VIEW IMAGES COMPLETED DATE/TIME: 03/02/2020 10:30 am REASON FOR STUDY: Chest pain COMPARISON: None. EXAM PARAMETERS: NUMBER OF VIEWS: One view. TECHNIQUE: Single frontal radiographic view of the chest acquired. RADIATION DOSE: NA LIMITATIONS: None. FINDINGS: LUNGS AND PLEURA: No opacities, masses or pneumothorax. No pleural effusion. MEDIASTINUM AND HILAR STRUCTURES: No masses. Contour normal. HEART AND VASCULAR STRUCTURES: Heart normal in size. Normal vasculature. BONES: No acute findings. HARDWARE: Midline surgical changes. OTHER: No other significant finding. IMPRESSION: No evidence of acute cardiopulmonary abnormality. TECHNICAL DOCUMENTATION: JOB ID: [id number] 2010 [employer]- All Rights Reserved Reading location - IP/workstation name: [email or web address]
[2020-03-02 11:04] LABS: ABSOLUTE BASOPHILS # (AUTO) 0.1 10^3/uL (0.0-0.2); ABSOLUTE EOSINOPHILS # (AUTO) 0.4 10^3/uL (0.0-0.6); ABSOLUTE LYMPHOCYTES (AUTO) 3.2 10^3/uL (0.5-4.7); ABSOLUTE MONOCYTES (AUTO) 0.8 10^3/uL (0.1-1.4); ABSOLUTE NEUT (AUTO) 7.5 10^3/uL (1.7-8.2); BASOPHILS % (AUTO) 0.6 % (0-2); EOSINOPHILS % (AUTO) 3.2 % (0-6); HEMATOCRIT 51.4 % (37.9-51.0); HEMOGLOBIN 17.9 g/dL (13.5-17.0); LYMPHOCYTES % (AUTO) 26.9 % (13-45); MEAN CORPUSCULAR HEMOGLOBIN 32.4 pg (27.0-33.4); MEAN CORPUSCULAR HGB CONC 34.8 g/dL (32.0-36.0); MEAN CORPUSCULAR VOLUME 93 fl (80-97); MONOCYTES % (AUTO) 6.6 % (3-13); PLATELET COUNT 177 10^3/uL (150-450); RED BLOOD COUNT 5.53 10^6/uL (4.35-5.55); RED CELL DISTRIBUTION WIDTH 13.3 % (11.5-14.0); SEGMENTED NEUTROPHILS % (AUTO) 62.7 % (42-78); TOTAL CELLS COUNTED % (AUTO) 100 %
[2020-03-02] MEDS ORDERED: NORMAL SALINE 500 ML IV ONE (11:09)
[2020-03-02 11:13] LABS: PROTHROMBIN TIME 12.4 SEC (11.4-15.4)
[2020-03-02 11:14] LABS: PARTIAL THROMBOPLASTIN TIME 35.2 SEC (23.5-35.8)
[2020-03-02] MEDS ORDERED: LORAZEPAM INJ 2 MG/1 ML VIAL IV ONE (11:22)
[2020-03-02 11:23] LABS: ALBUMIN 4.4 g/dL (3.5-5.0); ALKALINE PHOSPHATASE 108 U/L (38-126); ANION GAP 8 (5-19); ASPARTATE AMINO TRANSFERASE 34 U/L (17-59); BILIRUBIN,DIRECT 0.3 mg/dL (0.0-0.4); BILIRUBIN,TOTAL 0.9 mg/dL (0.2-1.3); BLOOD UREA NITROGEN 17 mg/dL (7-20); CALCIUM 9.6 mg/dL (8.4-10.2); CARBON DIOXIDE 25 mmol/L (22-30); CHLORIDE 106 mmol/L (98-107); CREATINE KINASE 59 U/L (55-170); GLUCOSE 199 mg/dL (75-110); POTASSIUM 4.1 mmol/L (3.6-5.0); TOTAL PROTEIN 7.5 g/dL (6.3-8.2)
[2020-03-02] MEDS ORDERED: KETOROLAC TROMETHAMINE INJ/PF 30 MG/1 ML SDV IV ONE (11:23)
[2020-03-02 11:34] LABS: CREATINE KINASE MB < 0.22 ng/mL (<4.55); TROPONIN I < 0.012 ng/mL
[2020-03-02 11:52] VITALS: BP 141/94
--- NOTE | 2020-03-02 23:57 | EKG REPORT ---
SEVERITY:- OTHERWISE NORMAL ECG - SINUS RHYTHM LOW VOLTAGE IN FRONTAL LEADS : Confirmed by: Favian Mares 02-Mar-2020 23:56:44
== END 2020-03-02 11:51 | disposition left against medical advice (07) ==
LOC: ER 09:51
DX: R07.9 Chest pain, unspecified (principal); R06.02 Shortness of breath; R11.0 Nausea; I25.10 Atherosclerotic heart disease of native coronary artery without angina pectoris; Z88.6 Allergy status to analgesic agent; Z95.1 Presence of aortocoronary bypass graft; Z86.73 Personal history of transient ischemic attack (TIA), and cerebral infarction without residual deficits; I25.2 Old myocardial infarction
CPT/HCPCS: 93005; 99285; 96361; 96374; 96375; 36415; 82553; 82550; 85025; 85610; 85730; 80053; 84484; 71045; 93010; J1885; J1170; J2060; J2405; J7040